=== PATIENT | female | born 1995 | race Caucasian/White ===

== ENCOUNTER 2016-06-06 07:33 | Inpatient (IN) | payer OTHER ==
[~2016-06-06] VITALS: Ht 167.6 cm; Wt 60.8 kg
[2016-06-06 08:39] LABS: HEMATOCRIT 37.1 % (37-47); MEAN CELL VOLUME 81.9 fL (80-100); MEAN CORPUSCULAR HGB CONC 34.2 g/dl (32-36); MEAN PLATELET VOLUME 10.4 fL (7.4-10.4); PLATELET COUNT 200 K/uL (130-400); RED BLOOD COUNT 4.53 M/uL (4.2-5.4); WHITE BLOOD COUNT 6.26 K/uL (4.8-10.8)
[2016-06-06] MEDS ORDERED: BCPILLS PO (08:50)
[2016-06-06] MEDS ORDERED: CYAN100073 (08:50)
[2016-06-06 08:58] LABS: CREATININE 0.74 mg/dl (0.60-1.20); POTASSIUM 3.7 mmol/L (3.5-5.1)
[2016-06-06 09:08] LABS: ALB/GLOB RATIO 1.2 (0.9-2); THYROID STIMULATING HORMONE 2.68 uIu/ml (0.300-4.500)
--- NOTE | 2016-06-06 10:13 | EMERGENCY ROOM VISIT NOTE ---
History Report prepared by Kelly: Don Tamayo Under the Supervision of: Dr. Amol Hampton M.D. First contact with patient: 07:48 Chief Complaint: MENTAL HEALTH EVALUATION Stated Complaint: DEPRESSION,ANXIETY,CUTTING History of Present Illness The patient is a 20 year old female who presents to the Emergency Room for an acute mental health evaluation. The patient has a history of anxiety and depression. She has been cutting her arms to relieve stress this week. The patient has a history of cutting herself. The patient states that a lot of different things are contributing to her anxiety an depression, mostly school. 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 The patient is not on any psych medications, and never has been. She admits to having suicidal ideations last week. The patient states that she would probably take pills, but does not think that she would actually do it. The patient's parents are aware of her history of cutting. The patient saw a counselor last week, and a few times over the summer. She did not discuss a treatment plan with the counselor. The patient says that she does not want to be admitted as an inpatient. The patient has been eating okay. She does not sleep much at night because of racing thoughts. The patient denies any history of eating disorders. She only drinks 2-3 times per month, but tends to drink heavily. She denies other drug use. She denies any medical problems. Source of History: patient Onset: one week ago Position: other (psyche) Quality: other (mental health evaluation) Timing: other (acute ) Note: Patient had suicidal ideations last week. Positive for cutting. Review of Systems All systems have been listed, reviewed, and are negative other than those previously mentioned. Please see Additional Medical History Sheet. Past Medical & Surgical Medical Problems: (1) Anxiety and depression (2) Suicidal ideation Family History No pertinent family history Social History Smoking Status: Never Smoker Alcohol Use: occasionally Marital Status: in relationship Occupation Status: [employer] student Current/Historical Medications Scheduled Control Pills ( Control Pills), 1 TAB PO DAILY Miscellaneous Medications Cyanocobalamin (B12) Allergies Coded Allergies: No Known Allergies (Unverified , 06/06/16) Physical Exam Vital Signs Date Time Temp Pulse Resp B/P Pulse Ox O2 Delivery O2 Flow Rate FiO2 06/06/16 10:03 95 18 122/53 97 Room Air 1/12/17 07:41 37.1 99 18 117/66 97 Room Air Physical Exam GENERAL: Patient awake, alert, oriented x 3. Anxious appearing. Patient follows commands. Patient does not appear toxic. Patient is adequately hydrated and well-nourished. SKIN: No erythema, pallor, cyanosis or rash. Multiple healing lacerations on her left forearm from cutting, none of which appear infected or require repair. HEENT: Normal head, pupils equal, reactive to light and accommodation. Oral cavity and posterior pharynx appear normal. Neck: Without adenopathy, no neck vein distention. Thyroid not enlarged, no nodules palpated. LUNGS: Clear to auscultation. No wheezes, no rales, no rhonchi. HEART: No murmurs. No gallops. No rubs EXTREMITIES: Multiple healing lacerations on her left forearm from cutting, none of which appear infected or require repair. NEUROLOGIC: Cranial nerves II-XII within normal limits. No gross motor sensory function deficits. PSYCH: Awake, alert, oriented, appropriate, somewhat anxious appearing, currently not suicidal. Medical Decision & Procedures Laboratory Results 06/06/16 08:22 06/06/16 08:22 Test 06/06/16 08:22 06/06/16 11:00 06/06/16 11:31 Red Blood Count 4.53 M/uL (4.2-5.4) Mean Corpuscular Volume 81.9 fL (80-100) Mean Corpuscular Hemoglobin 28.0 pg (25-34) Mean Corpuscular Hemoglobin Concent 34.2 g/dl (32-36) RDW Standard Deviation 39.3 fL (36.4-46.3) RDW Coefficient of Variation 13.0 % (11.5-14.5) Mean Platelet Volume 10.4 fL (7.4-10.4) Anion Gap 12.0 mmol/L (3-11) Est Creatinine Clear Calc Drug Dose 114.4 ml/min Estimated GFR () 136.1 Estimated GFR (Non- 117.4 BUN/Creatinine Ratio 15.0 (10-20) Calcium Level 9.0 mg/dl (8.5-10.1) Total Bilirubin 0.3 mg/dl (0.2-1) Aspartate Amino Transf (AST/SGOT) 67 U/L (15-37) Alanine Aminotransferase (ALT/SGPT) 23 U/L (12-78) Alkaline Phosphatase 58 U/L (45-117) Total Protein 7.1 gm/dl (6.4-8.2) Albumin 3.8 gm/dl (3.4-5.0) Globulin 3.3 gm/dl (2.5-4.0) Albumin/Globulin Ratio 1.2 (0.9-2) Thyroid Stimulating Hormone (TSH) 2.680 uIu/ml (0.300-4.500) Urine Color DK YELLOW Urine Appearance CLOUDY (CLEAR) Urine pH 5.5 (4.5-7.5) Urine Specific [place] 1.025 (1.000-1.030) Urine Protein NEG (NEG) Urine Glucose (UA) NEG (NEG) Urine Ketones TRACE (NEG) Urine Occult Blood NEG (NEG) Urine Nitrite NEG (NEG) Urine Bilirubin NEG (NEG) Urine Urobilinogen NEG (NEG) Urine Leukocyte Esterase NEG (NEG) Urine WBC (Auto) 1-5 /hpf (0-5) Urine RBC (Auto) 0-4 /hpf (0-4) Urine Hyaline Casts (Auto) 1-5 /lpf (0-5) Urine Epithelial Cells (Auto) 10-20 /lpf (0-5) Urine Bacteria (Auto) NEG (NEG) Urine Test NEG (NEG) Urine Opiates Screen NEG (NEG) Urine Methadone, Qualitative NEG (NEG) Urine Barbiturates NEG (NEG) Urine Phencyclidine (PCP) Level NEG (NEG) Ur Amphetamine/Methamphetamine NEG (NEG) MDMA (Ecstasy) Screen NEG (NEG) Urine Benzodiazepines Screen NEG (NEG) Urine Cocaine Metabolite NEG (NEG) Urine Marijuana (THC) NEG (NEG) Ethyl Alcohol mg/dL 50.0 mg/dl (0-3) Laboratory results as stated above per my review. ED Course 0750: Past medical records reviewed. The patient was evaluated in room A8. A complete history and physical examination was performed. 0950: The patient will be evaluated by Psych. 1138: There is a bed available for the patient in [facility]. 1230: The patient spoke with a mental health publications sales representative from [facility], and said that she feels unsafe at home. This is a change from our previous discussion. She will be admitted for a psych evaluation for depression / anxiety. Medical Decision I considered multiple diagnoses including anxiety, depression, thyroid disease, drug intoxication, suicidal ideation. Multiple labs and urinalysis were evaluated. Please see above. Initially the patient felt safe and felt that she could follow-up with outpatient counseling. While she was here the patient became more apprehensive about going home and was felt to be more suicidal. The patient was reevaluated by mental health and felt to be a good candidate for admission for her depression and suicidal ideation. I discussed findings with the patient, friends and with the mental health worker. Impression Primary Impression: Depression Additional Impressions: Anxiety Suicidal ideations Deliberate self-cutting Scribe Attestation The scribe's documentation has been prepared under my direction and personally reviewed by me in its entirety. I confirm that the note above accurately reflects all work, treatment, procedures, and medical decision making performed by me. Departure Information Dispostion Mental Health Acute Care Referrals No Doctor, Assigned (PCP) Patient Instructions A Signature Page, My [facility] Problem Qualifiers
[2016-06-06 11:46] LABS: URINE APPEARANCE CLOUDY (CLEAR); URINE BILIRUBIN NEG (NEG); URINE COLOR DK YELLOW; URINE NITRITE NEG (NEG); URINE PH 5.5 (4.5-7.5); URINE SPECIFIC GRAVITY 1.025 (1.000-1.030); UROBILINOGEN NEG (NEG)
[2016-06-06 11:49] LABS: MANUAL MICROSCOPIC REQUIRED? NO; REVIEW REQ? NO
[2016-06-06 11:58] LABS: BENZODIAZEPINE, URINE NEG (NEG); COCAINE,URINE NEG (NEG); PHENCYCLIDINE, URINE NEG (NEG)
[2016-06-06 12:29] VITALS: O2SAT 98
[2016-06-06] MEDS ORDERED: MAGNESIUM HYDROXIDE SUSP 30 ML UDC PO PRN (12:30)
[2016-06-06] MEDS ORDERED: BISMUTH SUBSALICYLATE PER ML OMNICELL CHARGE PO PRN (12:30)
[2016-06-06] MEDS ORDERED: SODIUM CHLORIDE 0.65% NA SOLN 45 ML (OCEAN) PRN (12:30)
[2016-06-06] MEDS ORDERED: hydrOXYzine HCL 25 MG TAB PO PRN ×2 (12:30)
[2016-06-06] MEDS ORDERED: ALUMINUM/MAGNESIUM SUSP 30 ML UDC PO PRN (12:30)
[2016-06-06] MEDS ORDERED: ACETAMINOPHEN 325 MG TAB PO PRN (12:30)
[2016-06-06 13:20] VITALS: BP 110/55; PULSE 81; TEMP 36.9
[2016-06-06] MEDS ORDERED: SERTRALINE HCL 50 MG TAB PO ONE (14:16)
[2016-06-06 14:26] VITALS: BP 110/55; PULSE 81; TEMP 36.9; Ht 167.6 cm; Wt 60.8 kg
[2016-06-06] MEDS ORDERED: BCP'S~ORDER AWAITING ACTION PO SCH (14:30)
[2016-06-06] MEDS ORDERED: CYAN100073 PO (14:48)
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
[2016-06-06] MEDS ORDERED: ETON1IMP2 (14:58)
[2016-06-07 06:49] VITALS: BP_SYST 121; BP_SYST 132; BP_DIAS 57; BP_DIAS 92; PULSE 66; TEMP 36.6
[2016-06-07] MEDS: CYANOCOBALAMIN 500 MCG TAB (VIT B-12) PO SCH (09:10)
[2016-06-07] MEDS: SERTRALINE HCL 50 MG TAB PO SCH (09:10)
--- NOTE | 2016-06-07 11:32 | Psychiatric Progress Notes ---
Progress Note Date of Service Jun 07, 2016. Interval History 20 yo [employer] student admitted voluntarily on 06/06/16 with severe depression, anxiety and suicidality. She has had long standing untreated depression and anxiety and has never been on meds or in sustained therapy. Chief Complaint "OK.". Subjective Patient was seen & assessed interval progress reviewed with Treatment Team. The patient says that she is adjusting to the unit, but slept most of the day yesterday. She still does not want to tell her father that she is here saying that she is not comfortable talking to him about her depression, and many times feels worse when he is around. When he brought her back to school last week, he hung around over night because he was worried about her mood but she wanted him to leave. She would prefer to involve her boyfriend in her treatment instead. Today she says that her mood is a little better and has not yet had thoughts of suicide, but is already thinking about when she can leave the hospital. She doesn't want to miss classes next week, with her first class being on Friday at 1000. She reports good appetite and sleep. Review of Systems Constitutional: No chills, No fatigue, No fever, No problem reported, No sweats , No weakness, No weight loss ENT: No dental problems, No hearing loss, No nasal symptoms, No problem reported, No sore throat, No tinnitus, No trouble swallowing, No unusual epistaxis Respiratory: No cough, No dyspnea at rest, No dyspnea on exertion, No hemoptysis, No problem reported, No shortness of breath, No sputum, No wheezing Cardiovascular: No PND, No chest pain, No claudication, No edema, No orthopnea , No palpitations, No problem reported Abdomen: No GI bleeding, No constipation, No diarrhea, No nausea, No pain, No problem reported, No vomiting Musculoskeletal: No calf pain, No joint pain, No muscle pain, No problem reported, No swelling Neurologic: No balance problems, No memory loss, No numbness/tingling, No paralysis, No problem reported, No vertigo, No weakness Psychiatric: + anxiety, + depression symptoms Integumentary: No bleeding, No color change, No itch, No new/changing skin lesions, No problem reported, No rash Sleep Information Total Hours of Sleep: 5.50 Meal Information Percent of Breakfast Consumed: 100 Percent of Dinner Consumed: 100 Mental Status Exam During interview pt is: alert and oriented, cooperative Appearance: appropriately dressed, appropriately groomed Eye contact is: good Motor behavior is: steady gait & station, no abnormal motor movements Speech: other (quiet, minimal) Mood is: depressed Thought process: goal directed Thought content: reality based without delusions Suicidal thought are: denied Homicidal thoughts are: denied Hallucinations: denies auditory, denies visual Cognition: memory grossly intact, attention grossly intact Intelligence estimated to be: average Insight: impaired Judgement: impaired Impression Adjusting to the milieu, but already minimizing her condition, wanting to be discharged. She has not been one to share her depression and anxiety with others over the years, resulting in years of suffering with treatment. She continues this pattern with her father, not wanting to involve him in treatment , not feeling comfortable talking to him. I think this extends beyond her father and will encourage her to develop an emotional vocabulary that she can become comfortable with. Is tolerating the start of Zoloft which increased to 50 mg. today. Continued Inpatient Care The patient requires inpatient treatment due to the severity of her condition and the risk for self harm if discharged. Plan (1) Major depressive disorder, recurrent severe without psychotic features 06/07 -Continue Zoloft 50 mg. daily - Q 15 min checks for safety - Encourage participation in group and individual counseling - Family meeting - Assist the patient to learn and utilize healthy coping strategies - Assist the patient to develop an emotional vocabulary that she could learn to be comfortable with. - The patient will need psychiatric follow up. (2) HILLARY (generalized anxiety disorder) 06/07 - Meds as above - Prn vistaril for anxiety or insomnia - Expose the patient to educational activities re: relaxation, mindfulness, deep breathing. Discharge / Aftercare Planning Primary Care Phys[facility]: [facility]: [facility] Visit Code E&M Code: 52709 Risk Factors Assessment : Yes /single/: Yes Higher / Fall in social status: No Access to guns: No Health problems: No Mental Health Diagnoses: No Substance use disorders: No Previous attempt: No Previous psychiatric stay: No Smoker: No Protective Factors Assessment Latter-Day beliefs: No : No Responsible for young children: No Employed: Yes Stable relationships: Yes Supportive family: Yes Data Vital Signs Last 24 Hrs: Date Time Temp Pulse Resp B/P Pulse Ox O2 Delivery O2 Flow Rate FiO2 06/07/16 06:49 36.6 66 16 121/57 66 132/92 06/06/16 14:26 36.9 81 18 110/55 06/06/16 13:20 36.9 81 18 110/55 06/06/16 12:29 93 18 104/81 98 Room Air Meds Administered Last 24 Hrs: Meds Administered (Past 24Hrs) Medications (Trade) Dose Ordered Sig/Curtis Route Start Time Stop Time Status Last Admin Dose Admin Sertraline HCl (Zoloft Tab) 50 mg QAM PO 06/07/16 09:00 07/07/16 08:59 06/07/16 09:10 50 MG Sertraline HCl (Zoloft Tab) 25 mg 1416 ONCE PO 06/06/16 14:16 06/06/16 14:21 DC 06/06/16 14:50 25 MG Cyanocobalamin (Vitamin B-12 Tab) 1,000 mcg QAM PO 06/07/16 09:00 07/07/16 08:59 06/07/16 09:10 1,000 MCG Lab Results Last 24 Hrs: Last 24 Hours Test 06/06/16 11:31 Ethyl Alcohol mg/dL 50.0 mg/dl
[2016-06-08 06:50] VITALS: BP_SYST 105; BP_SYST 121; BP_DIAS 67; BP_DIAS 83; PULSE 69; PULSE 88; TEMP 36.8
[2016-06-08] MEDS: CYANOCOBALAMIN 500 MCG TAB (VIT B-12) PO SCH (08:54)
[2016-06-08] MEDS: SERTRALINE HCL 50 MG TAB PO SCH (08:54)
--- NOTE | 2016-06-08 12:58 | Psychiatric Progress Notes ---
Progress Note Date of Service Jun 08, 2016. Interval History 20 yo [employer] student admitted voluntarily on 06/06/16 with severe depression, anxiety and suicidality. She has had long standing untreated depression and anxiety and has never been on meds or in sustained therapy. Chief Complaint "Better". Subjective Patient was seen & assessed interval progress reviewed with nursing. Staff reported she is going to groups and participating. She is willing to have a meeting with her boyfriend, but also wants to leave this weekend so she doesn't miss class on Friday. She does not want to involve her father in her treatment. She did not sleep as much last night, she thinks due to staying up late to read , and admits she usually gets only 5 hours of sleep. She denies SI and is working on her safety plan. She is planning to return to [facility] for outpatient services. She denies side effects to medications. Sleep Information Total Hours of Sleep: 5.75 Meal Information Percent of Breakfast Consumed: 100 Percent of Lunch Consumed: 100 Percent of Dinner Consumed: 95 Mental Status Exam During interview pt is: alert and oriented, cooperative Appearance: appropriately dressed, appropriately groomed (wearing makeup) Eye contact is: good Motor behavior is: steady gait & station, no abnormal motor movements Speech: other (quiet, minimal) Affect: blunted Mood is: other ("better," but still appears depressed) Thought process: goal directed Thought content: reality based without delusions Suicidal thought are: denied Homicidal thoughts are: denied Hallucinations: denies auditory, denies visual Cognition: memory grossly intact, attention grossly intact Intelligence estimated to be: average Insight: impaired Judgement: impaired Impression Adjusting to the milieu, but minimizing her symptoms, wanting to be discharged. She has not been one to share her depression and anxiety with others over the years, resulting in years of suffering without treatment. She continues this pattern with her father, not wanting to involve him in treatment, not feeling comfortable talking to him. I think this extends beyond her father and will encourage her to develop an emotional vocabulary that she can become comfortable with. Is tolerating the start of Zoloft which has been increased to 50 mg. Continued Inpatient Care The patient requires inpatient treatment due to the severity of her condition and the risk for self harm if discharged. Plan (1) Major depressive disorder, recurrent severe without psychotic features 06/07 -Continue Zoloft 50 mg. daily - Q 15 min checks for safety - Encourage participation in group and individual counseling - Family meeting - Assist the patient to learn and utilize healthy coping strategies - Assist the patient to develop an emotional vocabulary that she could learn to be comfortable with. - The patient will need psychiatric follow up. 06/08 - Patient focused on discharge and denying SI. Have asked weekend staff to have a family meeting with her boyfriend to review her safety plan, coping skills, and discharge plan. She plans to continue services at [facility]. (2) HILLARY (generalized anxiety disorder) 06/07 - Meds as above - Prn vistaril for anxiety or insomnia - Expose the patient to educational activities re: relaxation, mindfulness, deep breathing. Discharge / Aftercare Planning Primary Care Physician: Name: [facility] Psychiatrist: Name: Dr. Kristin Quinn ([facility]) Visit Code E&M Code: 39917 Risk Factors Assessment : Yes /single/: Yes Higher / Fall in social status: No Access to guns: No Health problems: No Mental Health Diagnoses: No Substance use disorders: No Previous attempt: No Previous psychiatric stay: No Hopelessness: No Smoker: No Protective Factors Assessment Yarsani beliefs: No : No Responsible for young children: No Employed: Yes Stable relationships: Yes Supportive family: Yes Data Vital Signs Last 24 Hrs: Date Time Temp Pulse Resp B/P Pulse Ox O2 Delivery O2 Flow Rate FiO2 06/08/16 06:50 36.8 69 16 105/67 88 121/83 Meds Administered Last 24 Hrs: Meds Administered (Past 24Hrs) Medications (Trade) Dose Ordered Sig/Curtis Route Start Time Stop Time Status Last Admin Dose Admin Sertraline HCl (Zoloft Tab) 50 mg QAM PO 06/07/16 09:00 07/07/16 08:59 06/08/16 08:54 50 MG Sertraline HCl (Zoloft Tab) 25 mg 1416 ONCE PO 06/06/16 14:16 06/06/16 14:21 DC 06/06/16 14:50 25 MG Cyanocobalamin (Vitamin B-12 Tab) 1,000 mcg QAM PO 06/07/16 09:00 07/07/16 08:59 06/08/16 08:54 1,000 MCG Lab Results Last 24 Hrs: Last 24 Hours Test 06/08/16 07:03 Aspartate Amino Transf (AST/SGOT) 48 U/L
[2016-06-09 07:03] VITALS: BP_SYST 104; BP_SYST 134; BP_DIAS 56; BP_DIAS 62; PULSE 62; PULSE 86; TEMP 36.3
--- NOTE | 2016-06-09 08:21 | Discharge Instructions ---
Discharge Information Report Includes Report will include the: Discharge Instructions & Summary Admission Admission Date / Time: Jun 06, 2016 at 12:24 Reason for Admission: Suicidal Ideation Discharge Discharge Diagnosis / Problem: Depression and anxiety Condition at Discharge: Good Discharge Goals Goal(s): Improve function, Improve disease control, Learn about illness, Therapeutic intervention Activity Recommendations Activity Limitations: resume your previous activity . Instructions / Follow-Up Instructions / Follow-Up . SPECIAL CARE INSTRUCTIONS: 1. Follow through with your scheduled aftercare appointments. If unable to keep an appointment, please call to reschedule. 2. Take your medication only as prescribed. Medication should not be changed or stopped without the approval of your doctor. In the event of worsening symptoms or concerns about side effects, contact your doctor immediately. 3. Utilize new healthy coping skills, anger management skills, and stress management skills learned during your hospitalization. Journal feelings and process them with a support person. Identify stressors or situations that may result in relapse, deterioration or inappropriate behaviors and develop a plan to deal with those issues. 4. If your coping skills are ineffective and you are in crisis, contact your outpatient providers for direction. If unable to reach your providers, please call the CAN HELP LINE AT or go to the closest Emergency Room. 5. Avoid alcohol and un-prescribed drugs. 6. You have been provided with the Mental Health Advance Directives Pamphlet for your review. AFTERCARE APPOINTMENTS: * Please call your insurance company prior to your scheduled appointment to confirm your aftercare providers are covered. Take your insurance information to your appointments. . Discharge / Aftercare Planning Primary Care Physician: Name: [facility] Psychiatrist: Name: Dr. Kristin Quinn ([facility]) Therapist: Name Of Therapist: DEE . Follow-Up Care Plan for Follow-Up Care: Follow up with current providers at [facility], and recommend establishing care with a psychiatrist and a therapist in the community. As you have requested discharge on a weekend, these referrals could not be made for you by the hospital. We will provide you with a list of local psychiatrists and therapists. Current Hospital Diet Patient's current hospital diet: Regular Diet Discharge Diet Recommended Diet: Regular Diet Procedures Procedures Performed: No Pending Studies Pending Studies at Discharge: No Medical Emergencies . Who to Call and When: Medical Emergencies: For questions or emergencies related to your hospital stay, please contact the Inpatient Behavioral Health Unit at [phone]. A speech and language clinician is on-call 16/12 for the Behavioral Health Unit for emergencies At any time you feel your situation is an emergency, you may also call 911 immediately. . Non-Emergent Contact Non-Emergency issues call your: Primary Care Provider, Psychiatrist, Therapist Past History Medical & Surgical History: (1) Deliberate self-cutting Advance Directives Existing Advance Directive: No Do You Have an Existing Mental: No Existing Living Will: No Existing Power of Cable Worker Helper: No Advance Directives Info Given: To Pt/S.O. Discharge Summary Admission HPI Per the Admitting provider: Please see admission H&P. Admission Exam Per the Admitting provider: Please see admission H&P. Hospital Course (1) Major depressive disorder, recurrent severe without psychotic features 06/07 -Continue Zoloft 50 mg. daily - Q 15 min checks for safety - Encourage participation in group and individual counseling - Family meeting - Assist the patient to learn and utilize healthy coping strategies - Assist the patient to develop an emotional vocabulary that she could learn to be comfortable with. - The patient will need psychiatric follow up. 06/08 - Patient focused on discharge and denying SI. Weekend staff had a family meeting with her boyfriend to review her safety plan, coping skills, and discharge plan. She plans to continue services at [facility] while arranging aftercare in the community. 06/09 - Patient continues to request discharge, is denying SI, and does not wish to stay until tomorrow so that aftercare can be arranged. She states she plans to follow up with her providers at [facility] while arranging aftercare in the community. Boyfriend met with staff last night and stated patient seemed much improved, and he had no concerns with her being discharged. (2) HILLARY (generalized anxiety disorder) 06/07 - Meds as above - Prn vistaril for anxiety or insomnia - Expose the patient to educational activities re: relaxation, mindfulness, deep breathing. Risk Factors Assessment : Yes /single/: Yes Higher / Fall in social status: No Access to guns: No Health problems: No Mental Health Diagnoses: No Substance use disorders: No Previous attempt: No Previous psychiatric stay: No Hopelessness: No Smoker: No Protective Factors Assessment Adventism beliefs: No : No Responsible for young children: No Employed: Yes Stable relationships: Yes Supportive family: Yes Absence of risk factors above: Yes (Patient has consistently denied SI here, reports improved mood, has partcipated in therapy and groups, had a meeting with her boyfriend who will stay with her after discharge and denied safety concerns with discharge, and expressed willingness to follow up with outpatient providers.) Day of Discharge Assessment Hospital Course: On admission, the patient was started on sertraline 25 mg daily, which she tolerated well and her dose was increased to 50 mg daily. She attended all groups and participated in therapy, and was able to discuss her stressors. She was unwilling to contact her father, stating that she was not comfortable talking to him about her depression, and often feels worse when he is around. She preferred to involve her boyfriend and her treatment instead, and he had a meeting with unit staff and the patient on 06/08/2016. He stated that her mood seemed to be improved, and denied concerns with her being discharged. He stated a plan to stay with her for several days after discharge. The patient requested discharge over the weekend, stating she did not want to miss any classes the following week, as her first class was Friday morning, and it would add to her stress if she missed it. She had good sleep and appetite throughout her stay, and her mood improved. She consistently denied suicidality out her hospitalization. She was able to work on a safety plan and to identify coping skills that are helpful for her. She was social with peers, and had support from her boyfriend. She also contacted her employer to let them know she would be missing some work. Day of Discharge Assessment: Staff report the patient is going to groups, consistently denying SI, and staff met with her and her boyfriend to review her safety plan and discharge plans. He is going to stay with her for a few days after discharge, and did not have concerns for her safety currently. The patient states that her mood is significantly improved from admission, rates it a 9 out of 10, and says she feels "happy" and ready for discharge. She denies any thoughts of harming herself or anyone else, and is making plans for the future. She feels she has good support from her boyfriend, who met with the patient and unit staff last night, is going to stay with her after discharge. She denies side effects to the medication, and is requesting discharge today so that she can resume classes tomorrow. She states she plans to continue to see her therapist at [facility] while arranging aftercare in the community. She states she tried to email a local psychiatrist to set up an appointment, but was informed he was not accepting new patients. She is asking for a list of local psychiatrists and therapists, and is aware that referrals were not made by the hospital staff, as she has requested to leave over the weekend and offices are not open. She is able to review her safety plan, and does not wish to stay another day so that aftercare can be arranged. Well nourished, well developed WF appearing stated age. Casually dressed and adequately groomed. Calm and cooperative. Seated in NAD, with fair eye contact and no abnormal movements. Speech is normal rate, volume, and tone. Mood is "happy," and affect is stable and congruent. Thoughts are linear, logical and goal directed. The patient denied suicidal and homicidal ideation and was able to safety plan. No paranoia, delusions, or hallucinations, and did not appear to be responding to internal stimuli. Cognition was grossly intact. Alert and oriented to person, place and time. Intelligence is consistent with level of education. Insight and and judgment are fair. Laboratory Refer to printed laboratory reports Total Time Total Time Spent (min): Greater than 30 minutes Total Time Included: examination of the patient, discharge planning, medication reconciliation Tobacco Cessation at Discharge FDA approved Prescription: non-smoker
[2016-06-09] MEDS: CYANOCOBALAMIN 500 MCG TAB (VIT B-12) PO SCH (08:50)
[2016-06-09] MEDS: SERTRALINE HCL 50 MG TAB PO SCH (08:50)
[2016-06-09] MEDS ORDERED: ZLF50 PO (09:45)
== END 2016-06-09 12:25 | disposition home or self-care (01) | DRG 885 ==
LOC: C.EDB 07:35 → C.MHU 12:24
PROVIDERS: ADMIT Psychiatry & Neurology Psychiatry; ATTEND Psychiatry & Neurology Child & Adolescent Psychiatry
DX: F33.2 Major depressive disorder, recurrent severe without psychotic features (principal); R45.851 Suicidal ideations; F41.1 Generalized anxiety disorder; G25.81 Restless legs syndrome; R74.0 Nonspecific elevation of levels of transaminase and lactic acid dehydrogenase [LDH]; Z91.5 Personal history of self-harm; Z79.899 Other long term (current) drug therapy; Z79.3 Long term (current) use of hormonal contraceptives

== ENCOUNTER 2017-02-08 10:19 | Inpatient (IN) | payer OTHER ==
[2017-02-08] VITALS (8 sets, daily range): BP systolic 87–111; BP diastolic 45–54; PULSE 76–90; TEMP 36.1–36.9; O2SAT 95–97; Ht 167.6 cm; Wt 59.6 kg
[~2017-02-08] VITALS: Ht 167.6 cm; Wt 59.6 kg
[~2017-02-08 10:19] MED LIST: CYAN100073 PO; ETON1IMP2; ZLF50 PO
[2017-02-08] MEDS ORDERED: ONDANSETRON INJ 2 MG/ML 2 ML VIAL IV STA (10:47)
[2017-02-08] MEDS ORDERED: SODIUM CHLORIDE 0.9% 1000ML 1,000 ML IV STA ×2 (10:47→12:08)
[2017-02-08 11:08] LABS: URINE APPEARANCE CLEAR (CLEAR); URINE BILIRUBIN NEG (NEG); URINE COLOR DK YELLOW; URINE EPITHELIAL CELL AUTO >30 /lpf (0-5); URINE NITRITE NEG (NEG); URINE PH 6.5 (4.5-7.5); URINE SPECIFIC GRAVITY 1.027 (1.000-1.030); UROBILINOGEN NEG (NEG)
[2017-02-08 11:17] LABS: MANUAL MICROSCOPIC REQUIRED? NO; REVIEW REQ? NO
--- NOTE | 2017-02-08 11:21 | EMERGENCY ROOM VISIT NOTE ---
History Report prepared by Kelly: Chneg Avina Under the Supervision of: Dr. Artur Billings D.O. First contact with patient: 10:33 Chief Complaint: MENTAL HEALTH EVALUATION Stated Complaint: STOMACHACHE, TRIED TO OD ON ZOLOFT/SLEEPING PILLS History of Present Illness The patient is a 21 year old female who presents to the Emergency Room for evaluation of an intentional overdose occurring 8 hours ago. She states that she attempted to overdose on Zoloft and Trazodone. She estimates that she took 10 pills of Trazodone and around 20 pills of Zoloft. The patient currently complains of nausea and fatigue. She states that she felt depressed because she got into a fight with her boyfriend last night. She notes that she drank a lot of alcohol last night. The patient states that her feelings of suicidal ideation have resolved, and she currently does not want to hurt herself. Her LNMP began yesterday. Source of History: patient Onset: 8 hours ago Quality: other (intentional overdose) Timing: other (episode) Associated Symptoms: + nausea, + fatigue Review of Systems See HPI for pertinent positives & negatives. A total of 10 systems reviewed and were otherwise negative. Past Medical & Surgical Medical Problems: (1) Anxiety and depression (2) HILLARY (generalized anxiety disorder) (3) Suicidal ideation Family History No pertinent family history Social History Smoking Status: Never Smoker Alcohol Use: occasionally Marital Status: in relationship Occupation Status: [employer] student Current/Historical Medications Scheduled Sertraline HCl (Sertraline HCl), 50 MG PO QAM Trazodone HCl (Trazodone HCl), 1 TAB PO HS Miscellaneous Medications Etonogestrel (Nexplanon) Allergies Coded Allergies: No Known Allergies (Unverified , 02/08/17) Physical Exam Vital Signs Date Time Temp Pulse Resp B/P (MAP) Pulse Ox O2 Delivery O2 Flow Rate FiO2 02/08/17 12:31 95 15 106/43 95 Room Air 02/08/17 11:17 76 17 94/48 95 Room Air 02/08/17 10:28 36.7 102 20 104/65 97 Room Air Physical Exam GENERAL: Patient is awake, alert, and somewhat anxious appearing, but does not appear to be uncomfortable or in pain. EYES: The conjunctivae are clear. The pupils are round and reactive. EARS, NOSE, MOUTH AND THROAT: The nose is without any evidence of any deformity. Mucous membranes are dry. Tongue is midline NECK: The neck is nontender and supple. RESPIRATORY: Normal respiratory effort is noted there is no evidence of wheezing rhonchi or rales CARDIOVASCULAR: Regular rate and rhythm noted there no murmurs rubs or gallops normal S1 normal S2 GASTROINTESTINAL: The abdomen is soft. Bowel sounds are present in all quadrants. Abdomen is nontender MUSCULOSKELETAL/EXTREMITIES: There is no evidence of gross deformity full range of motion is noted in the hips and shoulders SKIN: There is no obvious evidence of any rash. There are no petechiae, pallor or cyanosis noted. NEUROLOGIC: Patient is awake alert and oriented x3 strength is symmetric patellar reflexes are 2+ bilaterally PSYCH: Affect flat. Makes poor eye contact at times. Currently denying suicidal or homicidal ideation. Admits to intentional overdose in an attempt to hurt herself after a fight with her boyfriend last night. Medical Decision & Procedures Laboratory Results 02/08/17 11:05 Red Blood Count 4.61, Mean Corpuscular Volume 83.3, Mean Corpuscular Hemoglobin 27.1, Mean Corpuscular Hemoglobin Concent 32.6, Mean Platelet Volume 10.0, Neutrophils (%) (Auto) 87.6, Lymphocytes (%) (Auto) 8.6, Monocytes (%) (Auto) 3.1, Eosinophils (%) (Auto) 0.2, Basophils (%) (Auto) 0.1, Neutrophils # (Auto) 9.96, Lymphocytes # (Auto) 0.98, Monocytes # (Auto) 0.35, Eosinophils # (Auto) 0.02, Basophils # (Auto) 0.01 02/08/17 11:05 Test 02/08/17 00:00 02/08/17 11:05 Urine Color DK YELLOW Urine Appearance CLEAR (CLEAR) Urine pH 6.5 (4.5-7.5) Urine Specific [place] 1.027 (1.000-1.030) Urine Protein TRACE (NEG) Urine Glucose (UA) NEG (NEG) Urine Ketones NEG (NEG) Urine Occult Blood NEG (NEG) Urine Nitrite NEG (NEG) Urine Bilirubin NEG (NEG) Urine Urobilinogen NEG (NEG) Urine Leukocyte Esterase NEG (NEG) Urine WBC (Auto) 1-5 /hpf (0-5) Urine RBC (Auto) 0-4 /hpf (0-4) Urine Hyaline Casts (Auto) 1-5 /lpf (0-5) Urine Epithelial Cells (Auto) >30 /lpf (0-5) Urine Bacteria (Auto) NEG (NEG) Urine Test NEG (NEG) Urine Opiates Screen NEG (NEG) Urine Methadone, Qualitative NEG (NEG) Urine Barbiturates NEG (NEG) Urine Phencyclidine (PCP) Level NEG (NEG) Ur Amphetamine/Methamphetamine NEG (NEG) MDMA (Ecstasy) Screen POS (NEG) Urine Benzodiazepines Screen POS (NEG) Urine Cocaine Metabolite NEG (NEG) Urine Marijuana (THC) NEG (NEG) White Blood Count 11.36 K/uL (4.8-10.8) Red Blood Count 4.61 M/uL (4.2-5.4) Hemoglobin 12.5 g/dL (12.0-16.0) Hematocrit 38.4 % (37-47) Mean Corpuscular Volume 83.3 fL (80-100) Mean Corpuscular Hemoglobin 27.1 pg (25-34) Mean Corpuscular Hemoglobin Concent 32.6 g/dl (32-36) Platelet Count 210 K/uL (130-400) Mean Platelet Volume 10.0 fL (7.4-10.4) Neutrophils (%) (Auto) 87.6 % Lymphocytes (%) (Auto) 8.6 % Monocytes (%) (Auto) 3.1 % Eosinophils (%) (Auto) 0.2 % Basophils (%) (Auto) 0.1 % Neutrophils # (Auto) 9.96 K/uL (1.4-6.5) Lymphocytes # (Auto) 0.98 K/uL (1.2-3.4) Monocytes # (Auto) 0.35 K/uL (0.11-0.59) Eosinophils # (Auto) 0.02 K/uL (0-0.5) Basophils # (Auto) 0.01 K/uL (0-0.2) RDW Standard Deviation 36.7 fL (36.4-46.3) RDW Coefficient of Variation 12.1 % (11.5-14.5) Immature Granulocyte % (Auto) 0.4 % Immature Granulocyte # (Auto) 0.04 K/uL (0.00-0.02) Prothrombin Time 10.9 SECONDS (9.0-12.0) Prothromb Time International Ratio 1.0 (0.9-1.1) Activated Partial Thromboplast Time 22.6 SECONDS (21.0-31.0) Partial Thromboplastin Ratio 0.9 Anion Gap 11.0 mmol/L (3-11) Est Creatinine Clear Calc Drug Dose 99.9 ml/min Estimated GFR () 116.0 Estimated GFR (Non- 100.1 BUN/Creatinine Ratio 18.7 (10-20) Osmolality 313 mOsm/kg (280-300) Calcium Level 9.0 mg/dl (8.5-10.1) Magnesium Level 2.1 mg/dl (1.8-2.4) Total Bilirubin 0.4 mg/dl (0.2-1) Direct Bilirubin < 0.1 mg/dl (0-0.2) Aspartate Amino Transf (AST/SGOT) 28 U/L (15-37) Alanine Aminotransferase (ALT/SGPT) 20 U/L (12-78) Alkaline Phosphatase 58 U/L (45-117) Total Creatine Kinase 182 U/L (26-192) Creatine Kinase MB 1.4 ng/ml (0.5-3.6) Creatine Kinase MB Ratio 0.8 (0-3.0) Troponin I < 0.015 ng/ml (0-0.045) Total Protein 7.7 gm/dl (6.4-8.2) Albumin 4.1 gm/dl (3.4-5.0) Lipase 3281 U/L (73-393) Salicylates Level < 1.7 mg/dl (2.8-20) Acetaminophen Level < 2 ug/ml (10-30) Ethyl Alcohol mg/dL 63.0 mg/dl (0-3) Laboratory results per my review. Medications Administered Medications (Trade) Dose Ordered Sig/Curtis Route Start Time Stop Time Status Last Admin Dose Admin Sodium Chloride 1,000 ml @ 999 mls/hr Q1H1M STAT IV 02/08/17 10:47 02/08/17 11:47 DC 02/08/17 11:14 999 MLS/HR Ondansetron HCl (Zofran Inj) 4 mg NOW STAT IV 02/08/17 10:47 02/08/17 10:49 DC 02/08/17 11:14 4 MG Pantoprazole Sodium 40 mg/ Syringe 10 ml @ 5 mls/min NOW ONCE IV 02/08/17 12:00 02/08/17 12:01 DC 02/08/17 12:28 5 MLS/MIN Sodium Chloride 1,000 ml @ 250 mls/hr Q4H STAT IV 02/08/17 12:08 02/08/17 16:07 02/08/17 12:29 250 MLS/HR ECG Indication: nausea Rate (beats per minute): 92 Rhythm: normal sinus Findings: no acute ischemic change, no ectopy, other (QTC of 536) Comparison ECG Date: no prior available ED Course 1044: The patient was evaluated in room A7. A complete history and physical examination were performed. 1047: Ordered Zofran Inj 4 mg IV, NSS 1,000 ml @ 999 mls/hr IV. 1200: Ordered Pantoprazole Sodium 40 mg/Syringe 10 mL @ 5 mL/min IV. 1208: Ordered NSS 1,000 ml @ 250 mls/hr IV. 1210: Upon reevaluation, the patient is resting comfortably. I discussed results and treatment plan with her. She verbalizes agreement and understanding. I spoke with Dr. Mccollum of the [facility] [place]. The patient will be evaluated for further management and care. Medical Decision Differential diagnosis: Etiologies such as mood disorder, infection, hypoglycemia, electrolyte abnormalities, cardiac sources, intracerebral event, toxicologic, neurologic, as well as others were entertained. Nursing notes reviewed. The patient is a 21-year-old female who presented to the emergency department for an evaluation after a suicidal gesture this morning. The patient states that between 2 and 3 this morning she took multiple doses of her Zoloft as well as her trazodone. She was also drinking significant amounts of alcohol. She states that she had significant suicidal ideation at that time after arguing with her boyfriend. The patient presents to the emergency department today and states that she feels somewhat improved and denies having any suicidal ideation at this time. She does have nausea but no abdominal tenderness. I discussed the patient's laboratory results with her. She was unable to be medically cleared in the emergency department at this time because of a significantly elevated lipase. I do feel this is likely related to her acute alcohol use. She was treated with IV fluids as well as proton pump inhibitor. She was also given Zofran in the emergency department. Poison Control Center was consult. The patient's QTc was prolonged somewhat. Her magnesium is normal at this time. I discussed his case with the on-call [facility] hospitalist. They've agreed to evaluate the patient in the emergency department for further management and disposition. Medication Reconcilliation Current Medication List: was personally reviewed by me Blood Pressure Screening Patient's blood pressure: Normal blood pressure Blood pressure disposition: Did not require urgent referral Consults Time Called: 1205 Consulting Physician: Dr. Mccollum -[facility] Returned Call: 1210 I discussed the patient's case with Dr. Mccollum. The patient will be evaluated for further management. Impression Primary Impression: Depression Additional Impressions: Suicidal ideation Pancreatitis Suicide attempt Scribe Attestation The scribe's documentation has been prepared under my direction and personally reviewed by me in its entirety. I confirm that the note above accurately reflects all work, treatment, procedures, and medical decision making performed by me. Departure Information Dispostion Being Evaluated By Hospitalist Referrals No Doctor, Assigned (PCP) Patient Instructions My [facility] Health Problem Qualifiers Primary Impression: Depression Depression Type: unspecified Qualified Codes: F32.9 - Major depressive disorder, single episode, unspecified Additional Impressions: Pancreatitis Chronicity: acute Pancreatitis type: alcohol induced Acute pancreatitis complication: unspecified Qualified Codes: K85.20 - Alcohol induced acute pancreatitis without necrosis or infection
[2017-02-08 11:24] LABS: BASO % 0.1 %; BASO ABS # 0.01 K/uL (0-0.2); COMPLETE YES; EOS % 0.2 %; HEMATOCRIT 38.4 % (37-47); IG% 0.4 %; LYMPH % 8.6 %; LYMPH ABS # 0.98 K/uL (1.2-3.4); MEAN CELL VOLUME 83.3 fL (80-100); MEAN CORPUSCULAR HEMOGLOBIN 27.1 pg (25-34); MEAN CORPUSCULAR HGB CONC 32.6 g/dl (32-36); MONO % 3.1 %; NEUT % 87.6 %; PLATELET COUNT 210 K/uL (130-400); RED BLOOD COUNT 4.61 M/uL (4.2-5.4); WHITE BLOOD COUNT 11.36 K/uL (4.8-10.8)
[2017-02-08] MEDS ORDERED: TRAZ50TA35 PO (11:29)
[2017-02-08 11:33] LABS: PARTIAL THROMBOPLASTIN RATIO 0.9; PROTHROMBIN TIME (PATIENT) 10.9 SECONDS (9.0-12.0)
[2017-02-08 11:39] LABS: BENZODIAZEPINE, URINE POS (NEG); COCAINE,URINE NEG (NEG); PHENCYCLIDINE, URINE NEG (NEG)
[2017-02-08 11:45] LABS: ALT/SGPT 20 U/L (12-78); BLOOD UREA NITROGEN 16 mg/dl (7-18); BUN/CREATININE RATIO 18.7 (10-20); CARBON DIOXIDE 24 mmol/L (21-32); CHLORIDE 108 mmol/L (98-107); CREATININE 0.84 mg/dl (0.60-1.20); GLUCOSE 95 mg/dl (70-99); POTASSIUM 3.8 mmol/L (3.5-5.1); SODIUM 143 mmol/L (136-145)
[2017-02-08 11:51] LABS: ALKALINE PHOSPHATASE 58 U/L (45-117); AST/SGOT 28 U/L (15-37); CKMB/CK RATIO 0.8 (0-3.0)
[2017-02-08 11:53] LABS: ACETAMINOPHEN < 2 ug/ml (10-30)
[2017-02-08] MEDS ORDERED: PANTOprazole INJ 40 MG in SYRINGE 0 ML IV ONE (12:00)
[2017-02-08] MEDS ORDERED: DSY50 PO (12:22)
[2017-02-08] MEDS ORDERED: ONDANSETRON INJ 2 MG/ML 2 ML VIAL IV PRN (12:45)
[2017-02-08] MEDS ORDERED: ACETAMINOPHEN 325 MG TAB PO PRN (12:45)
--- NOTE | 2017-02-08 13:01 | History and Physical ---
History & Physical Date & Time of Service: Feb 08, 2017 at 12:46 Chief Complaint: Stomachache, Tried To Od On Zoloft/Sleeping Pills Primary Care Physician: [facility] History of Present Illness Source: patient Pt is a 21 yo female who presents to the ER for intentional overdose with her trazodone and zoloft medications after a fight with her boyfriend last night/ Pt states she had about 6 shots of alcohol in addition to 10-20 trazodone. Pt reports unknown amt of zoloft as well. Pt has hx of severe depression in which she follows up with [facility]. Pt currently states she is nauseous but denies any abd pain, fevers, chills, chest pain or shortness of breath. Pt reports continued nausea with emesis earlier this AM. Pt currently denies any suicidal ideation. Notable hx for severe depression and suicide attempt in the past. Past Medical/Surgical History Medical Problems: (1) Anxiety and depression Status: Chronic (2) HILLARY (generalized anxiety disorder) Status: Chronic Family History No pertinent family history Social History Smoking Status: Never Smoker Smokeless Tobacco Use: No Alcohol Use: socially Drug Use: marijuana Marital Status: in relationship Housing status: lives alone Occupational Status: [employer] student Allergies Coded Allergies: No Known Allergies (Unverified , 02/08/17) Home Medications Scheduled Sertraline HCl (Sertraline HCl), 50 MG PO QAM Trazodone HCl (Trazodone HCl), 1 TAB PO HS Miscellaneous Medications Etonogestrel (Nexplanon) Review of Systems Constitutional: No fever, No chills, No sweats, No weight loss, No weakness Respiratory: No cough, No sputum, No wheezing, No shortness of breath, No dyspnea on exertion Cardiovascular: No chest pain, No orthopnea, No PND, No edema, No claudication Abdomen: + nausea, + vomiting, No pain, No diarrhea, No constipation Musculoskeletal: No joint pain, No muscle pain, No swelling, No calf pain Genitourinary - Female: No dysuria, No urinary frequency, No urinary urgency Neurologic: No memory loss, No paralysis, No weakness, No numbness/tingling Psychiatric: No depression symptoms, No anhedonism, No anxiety, No insomnia Endocrine: No fatigue, No excessive thirst Integumentary: No rash, No itch Physical Exam Vital Signs Date Time Temp Pulse Resp B/P (MAP) Pulse Ox O2 Delivery O2 Flow Rate FiO2 02/08/17 12:31 95 15 106/43 95 Room Air 02/08/17 11:17 76 17 94/48 95 Room Air 02/08/17 10:28 36.7 102 20 104/65 97 Room Air General Appearance: WD/WN, + mild distress Head: normocephalic, atraumatic Eyes: normal inspection, PERRL, EOMI, sclerae normal ENT: normal ENT inspection, hearing grossly normal, TMs normal, pharynx normal Neck: supple, no adenopathy, thyroid normal, no JVD Respiratory/Chest: chest non-tender, lungs clear, normal breath sounds, no respiratory distress Cardiovascular: regular rate, rhythm, no edema, no gallop, no JVD Abdomen/GI: normal bowel sounds, non tender, soft, no organomegaly Back: normal inspection, no CVA tenderness, no muscle spasm Extremities/Musculoskelatal: normal inspection, no calf tenderness, normal capillary refill, no pedal edema Neurologic/Psych: no motor/sensory deficits, alert, normal mood/affect, oriented x 3 Skin: normal color, warm/dry, no rash Lymphatic: no adenopathy Diagnostics Laboratory Results Results Past 24 Hours Test 02/08/17 00:00 02/08/17 11:05 Range/Units Urine Color DK YELLOW Urine Appearance CLEAR CLEAR Urine pH 6.5 4.5-7.5 Urine Specific [place] 1.027 1.000-1.030 Urine Protein TRACE NEG Urine Glucose (UA) NEG NEG Urine Ketones NEG NEG Urine Occult Blood NEG NEG Urine Nitrite NEG NEG Urine Bilirubin NEG NEG Urine Urobilinogen NEG NEG Urine Leukocyte Esterase NEG NEG Urine WBC (Auto) 1-5 0-5 /hpf Urine RBC (Auto) 0-4 0-4 /hpf Urine Hyaline Casts (Auto) 1-5 0-5 /lpf Urine Epithelial Cells (Auto) >30 0-5 /lpf Urine Bacteria (Auto) NEG NEG Urine Test NEG NEG Urine Opiates Screen NEG NEG Urine Methadone, Qualitative NEG NEG Urine Barbiturates NEG NEG Urine Phencyclidine (PCP) Level NEG NEG Ur Amphetamine/Methamphetamine NEG NEG MDMA (Ecstasy) Screen POS NEG Urine Benzodiazepines Screen POS NEG Urine Cocaine Metabolite NEG NEG Urine Marijuana (THC) NEG NEG White Blood Count 11.36 4.8-10.8 K/uL Red Blood Count 4.61 4.2-5.4 M/uL Hemoglobin 12.5 12.0-16.0 g/dL Hematocrit 38.4 37-47 % Mean Corpuscular Volume 83.3 80-100 fL Mean Corpuscular Hemoglobin 27.1 25-34 pg Mean Corpuscular Hemoglobin Concent 32.6 32-36 g/dl Platelet Count 210 130-400 K/uL Mean Platelet Volume 10.0 7.4-10.4 fL Neutrophils (%) (Auto) 87.6 % Lymphocytes (%) (Auto) 8.6 % Monocytes (%) (Auto) 3.1 % Eosinophils (%) (Auto) 0.2 % Basophils (%) (Auto) 0.1 % Neutrophils # (Auto) 9.96 1.4-6.5 K/uL Lymphocytes # (Auto) 0.98 1.2-3.4 K/uL Monocytes # (Auto) 0.35 0.11-0.59 K/uL Eosinophils # (Auto) 0.02 0-0.5 K/uL Basophils # (Auto) 0.01 0-0.2 K/uL RDW Standard Deviation 36.7 36.4-46.3 fL RDW Coefficient of Variation 12.1 11.5-14.5 % Immature Granulocyte % (Auto) 0.4 % Immature Granulocyte # (Auto) 0.04 0.00-0.02 K/uL Prothrombin Time 10.9 9.0-12.0 SECONDS Prothromb Time International Ratio 1.0 0.9-1.1 Activated Partial Thromboplast Time 22.6 21.0-31.0 SECONDS Partial Thromboplastin Ratio 0.9 Sodium Level 143 136-145 mmol/L Potassium Level 3.8 3.5-5.1 mmol/L Chloride Level 108 98-107 mmol/L Carbon Dioxide Level 24 21-32 mmol/L Anion Gap 11.0 3-11 mmol/L Blood Urea Nitrogen 16 7-18 mg/dl Creatinine 0.84 0.60-1.20 mg/dl Est Creatinine Clear Calc Drug Dose 99.9 ml/min Estimated GFR () 116.0 Estimated GFR (Non- 100.1 BUN/Creatinine Ratio 18.7 10-20 Random Glucose 95 70-99 mg/dl Osmolality 313 280-300 mOsm/kg Calcium Level 9.0 8.5-10.1 mg/dl Magnesium Level 2.1 1.8-2.4 mg/dl Total Bilirubin 0.4 0.2-1 mg/dl Direct Bilirubin < 0.1 0-0.2 mg/dl Aspartate Amino Transf (AST/SGOT) 28 15-37 U/L Alanine Aminotransferase (ALT/SGPT) 20 12-78 U/L Alkaline Phosphatase 58 45-117 U/L Total Creatine Kinase 182 26-192 U/L Creatine Kinase MB 1.4 0.5-3.6 ng/ml Creatine Kinase MB Ratio 0.8 0-3.0 Troponin I < 0.015 0-0.045 ng/ml Total Protein 7.7 6.4-8.2 gm/dl Albumin 4.1 3.4-5.0 gm/dl Lipase 3281 73-393 U/L Salicylates Level < 1.7 2.8-20 mg/dl Acetaminophen Level < 2 10-30 ug/ml Ethyl Alcohol mg/dL 63.0 0-3 mg/dl Impression Assessment and Plan Pt is a 21 yo female with hx of severe depression who presents to ER after suicide attempt this AM Suicide attempt/polysubstance abuse - Will admit to inpt telemetry at this time. Hold all medications including trazodone and zoloft. Pt will be observed on 1:1 at this time. EKG in AM. Cont to monitor vitals. Likely can go to inpt psych in AM Elev lipase likely related to N/V but possibly element of pancreatitis as well with heavy drinking. Cont NPO at this time and start on IVF, recheck lipase in AM Pt is FULL CODE VTE Prophylaxis VTE Risk Assessment Done? Y/N: Yes Risk Level: Moderate
[2017-02-08] MEDS ORDERED: NURSING VERBAL MED ORDER ONE (15:15)
[2017-02-08] MEDS: SODIUM CHLORIDE 0.9% 1000ML 1,000 ML IV SCH ×2 (15:17→20:39)
[2017-02-08] MEDS ORDERED: MAGNESIUM OXIDE 400 MG TAB PO ONE (15:30)
[2017-02-08] MEDS: MAGNESIUM OXIDE 400 MG TAB PO SCH (20:39)
[2017-02-09] MEDS: SODIUM CHLORIDE 0.9% 1000ML 1,000 ML IV SCH ×3 (04:14→20:15)
[2017-02-09 07:53] VITALS: BP 92/48; PULSE 85; TEMP 37; O2SAT 97
[2017-02-09 08:09] LABS: BASO % 0.1 %; BASO ABS # 0.01 K/uL (0-0.2); COMPLETE YES; EOS % 0.6 %; HEMATOCRIT 33.7 % (37-47); IG% 0.3 %; LYMPH % 21.3 %; LYMPH ABS # 1.69 K/uL (1.2-3.4); MEAN CELL VOLUME 84.5 fL (80-100); MEAN CORPUSCULAR HEMOGLOBIN 27.8 pg (25-34); MEAN CORPUSCULAR HGB CONC 32.9 g/dl (32-36); MONO % 6.7 %; PLATELET COUNT 172 K/uL (130-400); RED BLOOD COUNT 3.99 M/uL (4.2-5.4); WHITE BLOOD COUNT 7.94 K/uL (4.8-10.8)
[2017-02-09] MEDS: MAGNESIUM OXIDE 400 MG TAB PO SCH ×2 (08:28→20:15)
[2017-02-09 08:30] VITALS: BP 101/48
[2017-02-09 08:52] LABS: BUN/CREATININE RATIO 23.4 (10-20); CALCIUM 8.1 mg/dl (8.5-10.1); CREATININE 0.7 mg/dl (0.60-1.20); POTASSIUM 3.9 mmol/L (3.5-5.1)
[2017-02-09 12:52] VITALS: BP 112/64; PULSE 100; TEMP 37.5; O2SAT 97
--- NOTE | 2017-02-09 13:02 | Psychiatric Consultation ---
Consultation Date of Consultation Feb 09, 2017. 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 Admit to medical floor with QTc prolongation and significantly elevated lipase following polysubstance ingestion. Chief Complaint "I had a stupid fight when I was drunk". History of Present Illness Patient has denied SI here in the hospital but admits that she was suicidal while intoxicated and intentionally took Zoloft and trazodone to harm herself following an argument with her boyfriend. She had had 6 shots and took 10-15 tabs (unknown amount of Zoloft and trazodone--her prescription medications). She didn't feel well and just went to bed. She states she woke up and really didn't feel much better so called [employer] to come to ED for assessment. She admits that she is stressed with family issues and the new semester. She states that 'this was all stupid" and seemed somewhat surprised when liaison had questioned her about willingness to return for inpatient care. Maikol reports reconciling with her boyfriend this am and having multiple exams this week. PHQ-9 16 with 1 on question 9 indicated she was having suicidal thoughts several days this week. Lipase has significantly improved, QTc was >500 and has also normalized. Past Psychiatric History Prior Psych Hospitalizations: [facility] (May 2016) Access to a Gun: No Additional Notes Dr. Mcguire at [facility] is prescribing her medications. Discharge recommendation was for therapy via [facility]. Past Medical/Surgical History History of Concussion/Seizure: No Allergies Allergies: Coded Allergies: No Known Allergies (Unverified , 02/08/17) Home Medications Scheduled Sertraline HCl (Sertraline HCl), 50 MG PO QAM Trazodone HCl (Trazodone HCl), 1 TAB PO HS Miscellaneous Medications Etonogestrel (Nexplanon) Family History No pertinent family history History of Suicide: No History of Substance Abuse: No Psychiatric History: Yes (mother with depression and anxiety) Alcohol Use Alcohol Use In Past 12 Months: Yes (binge drinker on weekends, unknown amount of wine during week) Smoking Use Smoking Status: Never Smoker Substance History denied thought tox positive for benzo--I cannot find any evidence of history in [place] PDMP database Personal History Childhood: grew up in [place], parents when she with 5 months old. Lived with mother until age 17. 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 Examination Vital Signs Vital Signs Past 12 Hours Date Time Temp Pulse Resp B/P (MAP) Pulse Ox O2 Delivery O2 Flow Rate FiO2 02/09/17 12:52 37.5 100 20 112/64 (80) 97 Room Air 02/09/17 08:30 101/48 (65) 02/09/17 08:00 Room Air 02/09/17 07:53 37.0 85 16 92/48 (63) 97 Room Air Laboratory Results Last 24 Hours Test 02/09/17 07:49 White Blood Count 7.94 K/uL Red Blood Count 3.99 M/uL Hemoglobin 11.1 g/dL Hematocrit 33.7 % Mean Corpuscular Volume 84.5 fL Mean Corpuscular Hemoglobin 27.8 pg Mean Corpuscular Hemoglobin Concent 32.9 g/dl Platelet Count 172 K/uL Mean Platelet Volume 10.0 fL Neutrophils (%) (Auto) 71.0 % Lymphocytes (%) (Auto) 21.3 % Monocytes (%) (Auto) 6.7 % Eosinophils (%) (Auto) 0.6 % Basophils (%) (Auto) 0.1 % Neutrophils # (Auto) 5.64 K/uL Lymphocytes # (Auto) 1.69 K/uL Monocytes # (Auto) 0.53 K/uL Eosinophils # (Auto) 0.05 K/uL Basophils # (Auto) 0.01 K/uL RDW Standard Deviation 36.9 fL RDW Coefficient of Variation 11.9 % Immature Granulocyte % (Auto) 0.3 % Immature Granulocyte # (Auto) 0.02 K/uL Sodium Level 139 mmol/L Potassium Level 3.9 mmol/L Chloride Level 108 mmol/L Carbon Dioxide Level 20 mmol/L Anion Gap 11.0 mmol/L Blood Urea Nitrogen 16 mg/dl Creatinine 0.70 mg/dl Est Creatinine Clear Calc Drug Dose 119.9 ml/min Estimated GFR () 144.6 Estimated GFR (Non- 124.7 BUN/Creatinine Ratio 23.4 Random Glucose 57 mg/dl Calcium Level 8.1 mg/dl Total Bilirubin 0.6 mg/dl Aspartate Amino Transf (AST/SGOT) 23 U/L Alanine Aminotransferase (ALT/SGPT) 17 U/L Alkaline Phosphatase 52 U/L Total Protein 5.9 gm/dl Albumin 3.0 gm/dl Globulin 2.9 gm/dl Albumin/Globulin Ratio 1.0 Lipase 167 U/L Mental Examination During interview pt is: alert and oriented Appearance: disheveled Eye contact is: good Motor behavior is: no abnormal motor movements Speech: normal in rate, rhythm & volume Affect: euthymic Mood is: other ("feeling better") Thought process: clear, coherent Thought content: reality based without delusions Suicidal thought are: denied Homicidal thoughts are: denied Hallucinations: denies auditory, denies visual Cognition: attention grossly intact Intelligence estimated to be: consistent with level of education Insight: limited Judgement: limited Impression / Recommendations Impression 21 yo female with a history of depression and psychiatric admission in May 2016 who presents following suicide attempt. She is exhibiting impulsivity, particularly when intoxicated but no evidence of yariel. She did not seek care immediately and remains at significant risk for self-harm despite denying SI currently. She is minimizing her drinking. Recommendations upon review of the potential medical ramifications of her attempt and my recommendations, she is agreeable to inpatient psychiatric care when medically cleared. reviewed that I did not anticipate a bed being available today on 3[facility] and likely to involve a bed search she has 1-on-1, probably not needed when a visitor or family present if the patient would ultimately refuse 201 admission, I would support involuntary commitment procedures. Please do not allow the patient to leave AMA without notification of psych service.
[2017-02-09 14:58] VITALS: BP 104/65; PULSE 81; TEMP 37; O2SAT 96
--- NOTE | 2017-02-09 15:14 | Progress Note ---
Subjective Date of Service: Feb 09, 2017. 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 She had an attempted suicide attempt on Friday evening after an argument with her boyfriend. In which she took 10-20 pills of sertaline and trazodone (each). The next day she threw up, and found about 5 pills that were undigested. She went to the ER and was admitted. EG initially showed prolonged QTC. Patient has history of depression. Patient also reports that she recently removed her tampon that she had left in from Friday evening, and she is concerned with toxic shock syndrome. Today, patient also states that she has been dizzy when she stands up. Problem List Medical Problems: (1) Anxiety Status: Acute (2) Deliberate self-cutting Status: Acute (3) Depression Status: Acute (4) Depression Status: Acute (5) Pancreatitis Status: Acute (6) Suicidal ideations Status: Acute (7) Suicide attempt Status: Acute Review of Systems Constitutional: + fever, No see HPI, No chills, No sweats, No weight loss, No weakness, No fatigue, No problem reported Eyes: No see HPI, No worsening of vision, No eye pain, No redness, No discharge , No diplopia, No problem reported ENT: No see HPI, No hearing loss, No unusual epistaxis, No nasal symptoms, No sore throat, No tinnitus, No dental problems, No trouble swallowing, No problem reported Respiratory: No see HPI, No cough, No sputum, No wheezing, No shortness of breath, No dyspnea on exertion, No dyspnea at rest, No hemoptysis, No problem reported Abdomen: No see HPI, No pain, No nausea, No vomiting, No diarrhea, No constipation, No GI bleeding, No problem reported Musculoskeletal: No see HPI, No joint pain, No muscle pain, No swelling, No calf pain, No problem reported Female : No see HPI, No dysuria, No urinary frequency, No hematuria, No incontinence, No abnormal vaginal bleeding, No vaginal discharge, No problem reported Psychiatric: + depression symptoms All Other Systems: Reviewed and Negative Medications Current Inpatient Medications Medications (Trade) Dose Ordered Sig/Curtis Route Start Time Stop Time Status Last Admin Dose Admin Acetaminophen (Tylenol Tab) 650 mg Q4H PRN PO 02/08/17 12:45 03/10/17 12:44 Ondansetron HCl (Zofran Inj) 4 mg Q6H PRN IV 02/08/17 12:45 03/10/17 12:44 Sodium Chloride 1,000 ml @ 125 mls/hr Q8H IV 02/08/17 12:45 03/10/17 12:44 02/09/17 20:15 125 MLS/HR Magnesium Oxide (Mag-Ox Tab) 400 mg BID PO 02/08/17 20:00 03/10/17 19:59 02/09/17 20:15 400 MG Objective Vital Signs Date Time Temp Pulse Resp B/P (MAP) Pulse Ox O2 Delivery O2 Flow Rate FiO2 02/09/17 14:58 37.0 81 16 104/65 (78) 96 Room Air 02/09/17 12:52 37.5 100 20 112/64 (80) 97 Room Air 02/09/17 08:30 101/48 (65) 02/09/17 08:00 Room Air 02/09/17 07:53 37.0 85 16 92/48 (63) 97 Room Air 02/08/17 23:49 Room Air 02/08/17 23:34 36.4 87 20 95/45 (62) 97 Room Air 02/08/17 22:31 36.9 85 20 103/54 (70) 97 Room Air 02/08/17 19:57 Room Air 02/08/17 17:06 36.1 76 20 111/50 (70) 95 Room Air 02/08/17 16:06 87/45 (59) 102/53 (69) 02/08/17 16:00 Room Air 02/08/17 15:08 93/46 (62) 02/08/17 15:07 93/46 (62) Physical Exam General Appearance: WD/WN, no apparent distress Neck: supple, no adenopathy Respiratory/Chest: chest non-tender, lungs clear, normal breath sounds Cardiovascular: regular rate, rhythm, no edema, no gallop, no JVD Abdomen: normal bowel sounds, non tender, soft Extremities: normal range of motion, normal inspection, no pedal edema Neurologic/Psychiatric: alert, normal mood/affect, oriented x 3 Lymphatic: no adenopathy Laboratory Results Last 24 Hours Test 02/09/17 07:49 White Blood Count 7.94 K/uL Red Blood Count 3.99 M/uL Hemoglobin 11.1 g/dL Hematocrit 33.7 % Mean Corpuscular Volume 84.5 fL Mean Corpuscular Hemoglobin 27.8 pg Mean Corpuscular Hemoglobin Concent 32.9 g/dl Platelet Count 172 K/uL Mean Platelet Volume 10.0 fL Neutrophils (%) (Auto) 71.0 % Lymphocytes (%) (Auto) 21.3 % Monocytes (%) (Auto) 6.7 % Eosinophils (%) (Auto) 0.6 % Basophils (%) (Auto) 0.1 % Neutrophils # (Auto) 5.64 K/uL Lymphocytes # (Auto) 1.69 K/uL Monocytes # (Auto) 0.53 K/uL Eosinophils # (Auto) 0.05 K/uL Basophils # (Auto) 0.01 K/uL RDW Standard Deviation 36.9 fL RDW Coefficient of Variation 11.9 % Immature Granulocyte % (Auto) 0.3 % Immature Granulocyte # (Auto) 0.02 K/uL Sodium Level 139 mmol/L Potassium Level 3.9 mmol/L Chloride Level 108 mmol/L Carbon Dioxide Level 20 mmol/L Anion Gap 11.0 mmol/L Blood Urea Nitrogen 16 mg/dl Creatinine 0.70 mg/dl Est Creatinine Clear Calc Drug Dose 119.9 ml/min Estimated GFR () 144.6 Estimated GFR (Non- 124.7 BUN/Creatinine Ratio 23.4 Random Glucose 57 mg/dl Calcium Level 8.1 mg/dl Total Bilirubin 0.6 mg/dl Aspartate Amino Transf (AST/SGOT) 23 U/L Alanine Aminotransferase (ALT/SGPT) 17 U/L Alkaline Phosphatase 52 U/L Total Protein 5.9 gm/dl Albumin 3.0 gm/dl Globulin 2.9 gm/dl Albumin/Globulin Ratio 1.0 Lipase 167 U/L Assessment and Plan 1. Suicide attempt in a 21 year old female with Major depression EKG shows improvement of her QTC. Patient has dizziness, will obtain orthostatic blood pressure. will recheck EKG in AM. If both normal, will discharge patient. Psych consulted and are recommending inpatient psych. Per their notes, they do not have beds on currently so they are doing a bed search. Pt is currently willing to go to inpatient psych. Per Dr. Sykes, if pt no longer is agreeable then she would support involuntary commitment procedures. Case Management to follow. Continued [facility] stay due to: other (f/u EKG) Discharge planning: other (INPATIENT PSYCH)
[2017-02-09 15:32] VITALS: BP_SYST 101; BP_SYST 113; BP_SYST 97; BP_DIAS 57; BP_DIAS 61; BP_DIAS 64; PULSE 84; PULSE 93; PULSE 96
[2017-02-09 23:03] VITALS: BP 117/72; PULSE 70; TEMP 36.5; O2SAT 98
[2017-02-10] MEDS: SODIUM CHLORIDE 0.9% 1000ML 1,000 ML IV SCH ×3 (04:16→20:33)
[2017-02-10 07:14] VITALS: BP 107/58; PULSE 79; TEMP 36.7; O2SAT 99
[2017-02-10 07:48] LABS: BASO % 0.2 %; BASO ABS # 0.01 K/uL (0-0.2); COMPLETE YES; EOS % 2.4 %; HEMATOCRIT 34.6 % (37-47); LYMPH % 32.7 %; LYMPH ABS # 1.89 K/uL (1.2-3.4); MEAN CELL VOLUME 83.2 fL (80-100); MEAN CORPUSCULAR HEMOGLOBIN 27.4 pg (25-34); MEAN CORPUSCULAR HGB CONC 32.9 g/dl (32-36); MEAN PLATELET VOLUME 10.2 fL (7.4-10.4); NEUT % 55.7 %; PLATELET COUNT 171 K/uL (130-400); RED BLOOD COUNT 4.16 M/uL (4.2-5.4); WHITE BLOOD COUNT 5.78 K/uL (4.8-10.8)
[2017-02-10 08:00] VITALS: O2SAT 99
[2017-02-10 08:21] LABS: ALT/SGPT 31 U/L (12-78); BLOOD UREA NITROGEN 10 mg/dl (7-18); BUN/CREATININE RATIO 15.6 (10-20); CALCIUM 8.7 mg/dl (8.5-10.1); CARBON DIOXIDE 27 mmol/L (21-32); CHLORIDE 109 mmol/L (98-107); CREATININE 0.61 mg/dl (0.60-1.20); GLUCOSE 101 mg/dl (70-99); SODIUM 142 mmol/L (136-145)
[2017-02-10 08:24] LABS: ALB/GLOB RATIO 1.1 (0.9-2); ALKALINE PHOSPHATASE 54 U/L (45-117); AST/SGOT 37 U/L (15-37)
[2017-02-10] MEDS: MAGNESIUM OXIDE 400 MG TAB PO SCH ×2 (08:33→20:33)
[2017-02-10 15:51] VITALS: BP 113/70; PULSE 51; TEMP 37.1; O2SAT 98
[2017-02-10 16:00] VITALS: O2SAT 99
--- NOTE | 2017-02-10 18:16 | Progress Note ---
Subjective Date of Service: Feb 10, 2017. Subjective Patient is feeling fine but still having some disequilibrium and difficulty at times with focusing but no overt double vision or vertigo. She states when she gets up to move around she feels unsteady. Problem List Medical Problems: (1) Anxiety Status: Acute (2) Deliberate self-cutting Status: Acute (3) Depression Status: Acute (4) Depression Status: Acute (5) Pancreatitis Status: Acute (6) Suicidal ideations Status: Acute (7) Suicide attempt Status: Acute Review of Systems Constitutional: No fever, No chills Respiratory: No cough, No sputum Objective Vital Signs Date Time Temp Pulse Resp B/P (MAP) Pulse Ox O2 Delivery O2 Flow Rate FiO2 02/10/17 16:00 99 Room Air 02/10/17 15:51 37.1 51 18 113/70 (84) 98 Room Air 02/10/17 08:00 99 Room Air 02/10/17 07:14 36.7 79 16 107/58 (74) 99 Room Air 02/10/17 00:00 Room Air 02/09/17 23:03 36.5 70 18 117/72 (87) 98 Room Air 02/09/17 20:00 Room Air Physical Exam General Appearance: WD/WN, no apparent distress Eyes: normal inspection, PERRL, EOMI, sclerae normal, funduscopic exam normal ENT: hearing grossly normal, pharynx normal Respiratory/Chest: chest non-tender, lungs clear, normal breath sounds Cardiovascular: regular rate, rhythm, no murmur Abdomen: normal bowel sounds, non tender, soft Neurologic/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: 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 tested, no motor/sensory deficits, alert, oriented x 3 Laboratory Results Last 24 Hours Test 02/10/17 06:56 White Blood Count 5.78 K/uL Red Blood Count 4.16 M/uL Hemoglobin 11.4 g/dL Hematocrit 34.6 % Mean Corpuscular Volume 83.2 fL Mean Corpuscular Hemoglobin 27.4 pg Mean Corpuscular Hemoglobin Concent 32.9 g/dl Platelet Count 171 K/uL Mean Platelet Volume 10.2 fL Neutrophils (%) (Auto) 55.7 % Lymphocytes (%) (Auto) 32.7 % Monocytes (%) (Auto) 9.0 % Eosinophils (%) (Auto) 2.4 % Basophils (%) (Auto) 0.2 % Neutrophils # (Auto) 3.22 K/uL Lymphocytes # (Auto) 1.89 K/uL Monocytes # (Auto) 0.52 K/uL Eosinophils # (Auto) 0.14 K/uL Basophils # (Auto) 0.01 K/uL RDW Standard Deviation 36.8 fL RDW Coefficient of Variation 12.1 % Immature Granulocyte % (Auto) 0.0 % Immature Granulocyte # (Auto) 0.00 K/uL Sodium Level 142 mmol/L Potassium Level 4.0 mmol/L Chloride Level 109 mmol/L Carbon Dioxide Level 27 mmol/L Anion Gap 6.0 mmol/L Blood Urea Nitrogen 10 mg/dl Creatinine 0.61 mg/dl Est Creatinine Clear Calc Drug Dose 137.6 ml/min Estimated GFR () > 150.0 Estimated GFR (Non- 130.5 BUN/Creatinine Ratio 15.6 Random Glucose 101 mg/dl Calcium Level 8.7 mg/dl Total Bilirubin 0.3 mg/dl Aspartate Amino Transf (AST/SGOT) 37 U/L Alanine Aminotransferase (ALT/SGPT) 31 U/L Alkaline Phosphatase 54 U/L Total Protein 6.2 gm/dl Albumin 3.2 gm/dl Globulin 3.0 gm/dl Albumin/Globulin Ratio 1.1 Assessment and Plan 21-year-old female with trazodone and Zoloft overdose in addition alcohol. Patient continues to likely have some residual effects of her trazodone with some disequilibrium. Her QT interval continues to remain acceptable. Once her physical symptoms resolved and she'll be transferred to inpatient psych facility voluntarily Continued [facility] stay due to: other (f/u EKG) Discharge planning: other (INPATIENT PSYCH)
[2017-02-10 22:41] VITALS: BP 113/60; PULSE 53; TEMP 36.7; O2SAT 98
[2017-02-11] MEDS: SODIUM CHLORIDE 0.9% 1000ML 1,000 ML IV SCH (04:28)
[2017-02-11 07:04] VITALS: BP 106/68; PULSE 69; TEMP 36.7; O2SAT 97
[2017-02-11 07:30] LABS: BASO % 0.2 %; BASO ABS # 0.01 K/uL (0-0.2); COMPLETE YES; EOS % 3.2 %; IG% 0.2 %; LYMPH % 24.2 %; MEAN CELL VOLUME 82.9 fL (80-100); MEAN CORPUSCULAR HGB CONC 33.7 g/dl (32-36); MEAN PLATELET VOLUME 10.2 fL (7.4-10.4); NEUT % 62.2 %; PLATELET COUNT 195 K/uL (130-400); RED BLOOD COUNT 4.22 M/uL (4.2-5.4); WHITE BLOOD COUNT 6.61 K/uL (4.8-10.8)
[2017-02-11] MEDS: MAGNESIUM OXIDE 400 MG TAB PO SCH (07:40)
[2017-02-11 08:00] VITALS: O2SAT 97
[2017-02-11 08:05] LABS: BUN/CREATININE RATIO 11.3 (10-20); CALCIUM 8.7 mg/dl (8.5-10.1); CREATININE 0.69 mg/dl (0.60-1.20); POTASSIUM 3.7 mmol/L (3.5-5.1)
--- NOTE | 2017-02-11 11:26 | Discharge Instructions ---
Discharge Instructions Date of Service Feb 11, 2017. Admission Reason for Admission: Pancreatitis,Suicide Attempt Discharge Discharge Diagnosis / Problem: intentional overdose Discharge Goals Goal(s): Diagnostic testing Activity Recommendations Activity Limitations: resume your previous activity . Current Hospital Diet Patient's current hospital diet: Regular Diet Discharge Diet Recommended Diet: Regular Diet Pending Studies Studies pending at discharge: no Medical Emergencies . Who to Call and When: Medical Emergencies: If at any time you feel your situation is an emergency, please call 911 immediately. . Non-Emergent Contact Non-Emergency issues call your: Primary Care Provider Call Non-Emergent contact if: temperature is above 101, your pain is not controlled . . "Provider Documentation" section prepared by Joyce Antunez. . VTE Core Measure Inpt VTE Proph given/why not?: Treatment not indicated
--- NOTE | 2017-02-11 11:32 | Discharge Summary ---
Discharge Summary Date of Service Feb 11, 2017. (Joyce Antunez CRNP) Discharge Summary Admission Date: Feb 08, 2017 at 12:35 Discharge Date: Feb 11, 2017 Discharge Disposition: Acute care mental health Principal Diagnosis: Suicide attempt Consultations: Dr. Sykes, psychiatry (Joyce Antunez CRNP) Medication Reconciliation Continued Medications: Etonogestrel (Nexplanon) 68 Mg Imp Discontinued Medications: Sertraline HCl (Sertraline HCl) 50 Mg Tab 50 MG PO QAM for 30 Days, #30 TAB Trazodone HCl (Trazodone HCl) 50 Mg Tab 1 TAB PO HS Discharge Exam Review of Systems: Constitutional: No weakness Neurologic: No memory loss, No paralysis, No weakness Psychiatric: No depression symptoms Physical Exam: General Appearance: WD/WN, no apparent distress Eyes: normal inspection Respiratory/Chest: chest non-tender, lungs clear, normal breath sounds Cardiovascular: regular rate, rhythm, no edema, no gallop, no murmur Abdomen / GI: normal bowel sounds, non tender, soft Neurologic/Psychiatric: alert, normal mood/affect, oriented x 3 Skin: normal color, warm/dry (Joyce Antunez CRNP) Hospital Course 21-year-old female with trazodone and Zoloft overdose in addition alcohol. Her QT interval continues to remain acceptable. Medically stable to transfer to psych Total Time Spent: Greater than 30 minutes This includes examination of the patient, discharge planning, medication reconciliation, and communication with other providers. (Joyce Antunez CRNP) PA Physician Supervision Note: I interviewed and examined the patient. Discussed with Michelle Antunez ORDER WORKER and agree with findings and plan as documented in the note. Any exceptions or clarifications are listed here: None Patient was seen with almost complete resolution of her symptoms only having some mild subjective lightheadedness when standing her vitals are stable she is voluntarily willing to go to behavioral health unit today. She is awake alert and oriented her cranial nerves are intact including cerebellar exam she'll be transferred to be of her health unit for further care of her suicide gesture and depression she is counseled by substance abuse with her alcohol use that occurred surrounding this event also Documented By: Silviano Bowens (Silviano Bowens M.D.) Discharge Instructions Please refer to the electronic Patient Visit Report (Discharge Instructions) for additional information. (Joyce Antunez ., PRAVEENA)
[2017-02-14 12:35] LABS: HYDROXYETHYLFLURAZEPAM CONF NEGATIVE NG/ML (CUTOFF=50); HYDROXYMIDAZOLAM NEGATIVE NG/ML (CUTOFF=50); HYDROXYTRIAZOLAM CONF NEGATIVE NG/ML (CUTOFF=50); TEMAZEPAM CONF NEGATIVE NG/ML (CUTOFF=50)
== END 2017-02-11 13:41 | DRG 918 ==
LOC: C.EDB 10:21 → C.MS4W 12:35 → EDBEDREQ 12:39 → ENRESERV 12:58
PROVIDERS: ADMIT Hospitalist; ATTEND Internal Medicine
DX: T43.222A Poisoning by selective serotonin reuptake inhibitors, intentional self-harm, initial encounter (principal); T43.212A Poisoning by selective serotonin and norepinephrine reuptake inhibitors, intentional self-harm, initial encounter; I45.81 Long QT syndrome; R11.2 Nausea with vomiting, unspecified; R42 Dizziness and giddiness; R74.8 Abnormal levels of other serum enzymes; F32.9 Major depressive disorder, single episode, unspecified; F19.10 Other psychoactive substance abuse, uncomplicated; Z91.5 Personal history of self-harm; Z81.8 Family history of other mental and behavioral disorders; Z79.899 Other long term (current) drug therapy

== ENCOUNTER 2017-02-11 13:41 | Inpatient (IN) | payer OTHER ==
[~2017-02-11] VITALS: Ht 166.4 cm; Wt 60.1 kg
[~2017-02-11 13:41] MED LIST changes: -CYAN100073 PO; +DSY50 PO
[2017-02-11 14:00] VITALS: BP 121/71; PULSE 75; TEMP 36.9; Ht 166.4 cm; Wt 60.1 kg
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
[2017-02-11] MEDS ORDERED: MAGNESIUM HYDROXIDE SUSP 30 ML UDC PO PRN (16:00)
[2017-02-11] MEDS ORDERED: BISMUTH SUBSALICYLATE PER ML OMNICELL CHARGE PO PRN (16:00)
[2017-02-11] MEDS ORDERED: SODIUM CHLORIDE 0.65% NA SOLN 45 ML (OCEAN) PRN (16:00)
[2017-02-11] MEDS ORDERED: ALUMINUM/MAGNESIUM SUSP 30 ML UDC PO PRN (16:00)
[2017-02-11] MEDS ORDERED: ACETAMINOPHEN 325 MG TAB PO PRN (16:00)
[2017-02-11] MEDS ORDERED: hydrOXYzine HCL 25 MG TAB PO PRN (16:00)
[2017-02-11] MEDS: hydrOXYzine HCL 25 MG TAB PO PRN (23:41)
[2017-02-12 06:42] VITALS: BP_SYST 117; BP_SYST 118; BP_DIAS 63; BP_DIAS 67; PULSE 108; PULSE 69; TEMP 36.7
--- NOTE | 2017-02-12 10:51 | Psychiatric Progress Notes ---
Progress Note Date of Service Feb 12, 2017. Interval History 21-year-old woman transferred from medical following an intentional toxic ingestion of Zoloft and trazodone in a suicide attempt. At this point she agrees that she has been continuously depressed although denies that she has been suicidal other than when under the influence of alcohol. We have suggested she abstain from alcohol for the foreseeable future. We discussed medications and she agrees to another trial of an antidepressant but we will postpone the start of this until the effects of the overdose have diminished. Today she continues to feel as if her vision is blurred complaining of a "whooshing" in her head and feeling tremulous. She does not want her father involved in her treatment and he does not know that she is here, however she will allow her boyfriend to be involved with meetings. She agrees now that she needs to follow up both with a psychiatrist and with a therapist to talk about her issues and we will establish this aftercare prior to discharge. At this time however she requires inpatient mental health treatment due to the severity of her condition and the risk for self-harm if discharged. Chief Complaint "I'm just tired. ". Subjective Patient was seen & assessed interval progress reviewed with Treatment Team. The patient is just getting out of bed, saying she hadn't slept for 3 days, but last night slept long. She has changed her mind about involving her father, and so called him yesterday to tell of her OD, and today has a phone meeting scheduled with him. She has also decided that she wants to withdraw from this semester, but stay in [place] to attend psychiatric treatment. She thinks that he will support her in this, given that she has now been hospitalized twice. She rates her mood today 4/10 and has anxiety about the upcoming meeting, but is denying active SI. She otherwise says that she is too tired to know how she feels at this time. She is still experiencing a sense of tremulousness and would like to postpone starting meds for another day. Review of Systems Constitutional: + fatigue ENT: No hearing loss, No unusual epistaxis, No nasal symptoms, No sore throat, No tinnitus, No dental problems, No trouble swallowing, No problem reported Respiratory: No cough, No sputum, No wheezing, No shortness of breath, No dyspnea on exertion, No dyspnea at rest, No hemoptysis, No problem reported Cardiovascular: No chest pain, No orthopnea, No PND, No edema, No claudication , No palpitations, No problem reported Abdomen: No pain, No nausea, No vomiting, No diarrhea, No constipation, No GI bleeding, No problem reported Musculoskeletal: No joint pain, No muscle pain, No swelling, No calf pain, No problem reported Neurologic: + problem reported (tremors) Psychiatric: + depression symptoms, + anxiety Integumentary: No rash, No itch, No new/changing skin lesions, No color change , No bleeding, No problem reported Sleep Information Total Hours of Sleep: 6.00 Meal Information Percent of Breakfast Consumed: 0 Percent of Dinner Consumed: 100 Mental Status Exam During interview pt is: alert and oriented, cooperative Appearance: appropriately dressed, disheveled Eye contact is: good Motor behavior is: steady gait & station Speech: normal in rate, rhythm & volume Affect: blunted, anxious Mood is: depressed, anxious Thought process: goal directed Thought content: reality based without delusions Suicidal thought are: present, Plan: present, Intent: present Homicidal thoughts are: denied Hallucinations: denies auditory, denies visual Cognition: memory grossly intact, attention grossly intact, language grossly intact Intelligence estimated to be: average Insight: impaired Judgement: impaired Impression The patient is adjusting to the unit. She is still feeling the effects of her OD and wants to wait another day before starting Lexapro. Meeting with father today, and will discuss her wish to withdraw from school. This may be a difficult discussion given that father wants her to come home to work on family dynamics. Plan (1) Major depressive disorder, recurrent severe without psychotic features 02/11 - Patient agreeable to a trial of Lexapro but we'll postpone starting this until the effects of the overdose have diminished - Every 15 minute checks for safety -Encourage participation in group and individual counseling - The patient will need psychiatric aftercare - Assist the patient to explore ideas of mindfulness, relaxation - Recommend all currently nonprescribed medications be Removed 02/12 - Patient requesting to hold on meds another day, but will start tomorrow - Family meeting by phone with father today (2) HILLARY (generalized anxiety disorder) 02/11 - Will use when necessary Vistaril for anxiety and sleep - Lexapro as above - Explore mindfulness, relaxation, breathing exercises Has been reviewed with Dr. Lilliam Octavio Discharge / Aftercare Planning Primary Care Physician: Name: [facility] Visit Code E&M Code: 54091 Inventory Assets Strengths: Support from boyfriend, motivated to get a degree Needs: To abstain from alcohol Risk Factors Assessment : Yes /single/: Yes Higher / Fall in social status: No Health problems: No Mental Health Diagnoses: Yes Substance use disorders: Yes Previous attempt: Yes Previous psychiatric stay: Yes Hopelessness: No Smoker: No Protective Factors Assessment Restorationist beliefs: No : No Responsible for young children: No Employed: Yes Stable relationships: No Supportive family: No Data Vital Signs Last 24 Hrs: Date Time Temp Pulse Resp B/P (MAP) Pulse Ox O2 Delivery O2 Flow Rate FiO2 02/12/17 06:42 36.7 69 16 117/63 108 118/67 02/11/17 14:00 36.9 75 16 121/71 Meds Administered Last 24 Hrs: Meds Administered (Past 24Hrs) Medications (Trade) Dose Ordered Sig/Curtis Route Start Time Stop Time Status Last Admin Dose Admin Hydroxyzine HCl (Vistaril Tab) 50 mg HSZ PRN PO 02/11/17 16:00 03/13/17 15:59 02/11/17 23:41 50 MG
[2017-02-12] MEDS: hydrOXYzine HCL 25 MG TAB PO PRN (23:06)
[2017-02-13 06:56] VITALS: BP_SYST 103; BP_SYST 105; BP_DIAS 58; BP_DIAS 64; PULSE 48; PULSE 86; TEMP 36.5
[2017-02-13] MEDS: ESCITALOPRAM OXALATE 10 MG TAB PO SCH (08:45)
--- NOTE | 2017-02-13 10:14 | Psychiatric Progress Notes ---
Progress Note Date of Service Feb 13, 2017. Interval History 21-year-old woman transferred from medical following an intentional toxic ingestion of Zoloft and trazodone in a suicide attempt. At this point she agrees that she has been continuously depressed although denies that she has been suicidal other than when under the influence of alcohol. We have suggested she abstain from alcohol for the foreseeable future. We discussed medications and she agrees to another trial of an antidepressant but we will postpone the start of this until the effects of the overdose have diminished. Today she continues to feel as if her vision is blurred complaining of a "whooshing" in her head and feeling tremulous. She does not want her father involved in her treatment and he does not know that she is here, however she will allow her boyfriend to be involved with meetings. She agrees now that she needs to follow up both with a psychiatrist and with a therapist to talk about her issues and we will establish this aftercare prior to discharge. At this time however she requires inpatient mental health treatment due to the severity of her condition and the risk for self-harm if discharged. Chief Complaint "Better than expected". Subjective Patient was seen & assessed and interval progress reviewed. Staff report she attended some groups yesterday, and stated her mood was improving and she was feeling more optimistic. She said she was realizing that she needed to be more serious about her mental health treatment and to go to her follow-up appointments. Her father and boyfriend visited, and she had a family meeting with her father and the social welfare clerk yesterday. Her father supports her taking a medical withdrawal from school, wanting her to return home, and they had an extended discussion about this. They discussed the conflict between the patient and her stepmother, in part because her stepmother did not pay for her own children's college education and doesn't support the patient's father paying for her tuition. Her father also expressed concern about her on healthy ways of dealing with conflicts, which he noted is similar to her biological mother's family. The patient has not had contact with her mother for 4 years and has no intention of changing that. Her father noted that she has agreed to get treatment in the past, but then has not followed through. He expressed concern that this may happen again. The patient voiced her desire to stay in school, and agreed to sign releases so that her outpatient providers could communicate with her father. At the end of the meeting, the plan was for her to medically withdrawal from school, but stay [place] and obtained local aftercare. She is scheduled to see Wesleymagdi Santana at [facility] on 03/05/2017. Today, she started the trial of escitalopram 5 mg. She has also been receiving hydroxyzine for sleep. She states that mood has improved, and that she was pleased with the outcome of her family meeting yesterday, as she thinks her father understood why she would not want to move back home, and is happy he is allowing her to stay in [place] [employer]. She denies suicidal thoughts, and is making plans for the future. She denies problems with appetite, but is requiring medication for sleep. The effects of her overdose have resolved, and she denies feeling shaky or dizzy. She is not sure how she will spend her time now that she is planning to withdraw from school. She talks about the need to have a structured schedule, but is not sure how she will achieve that. She is concerned about the difficulty she has had with focus, saying she can't concentrate in class or to study, and we reviewed the various things that can negatively impact concentration, including depression, anxiety, poor sleep, substance abuse, etc. She was encouraged to work on a plan for how she will structure her schedule when she leaves the hospital, and how she will incorporate good self-care and new, healthy coping skills into that. Sleep Information Total Hours of Sleep: 6.00 Meal Information Percent of Breakfast Consumed: 100 Percent of Lunch Consumed: 100 Percent of Dinner Consumed: 100 Mental Status Exam During interview pt is: alert and oriented, cooperative Appearance: appropriately dressed (wearing a cropped T-shirt), appropriately groomed (hair pulled up, wearing full makeup) Eye contact is: good Motor behavior is: steady gait & station, no abnormal motor movements Speech: normal in rate, rhythm & volume Affect: other (mildly depressed, but reactive and appropriate) Mood is: other ("doing better") Thought process: goal directed Thought content: reality based without delusions Suicidal thought are: denied Homicidal thoughts are: denied Hallucinations: denies auditory, denies visual Cognition: memory grossly intact, attention grossly intact, language grossly intact Intelligence estimated to be: average Insight: fair Judgement: fair Impression The patient is adjusting to the unit, participating in groups, and had a family meeting with her father. The effects of her OD have finally subsided, and she got her first dose of escitalopram 5 mg today. She has decided to medically withdraw from school, but stay in [place], and will need to be referred for aftercare here, as she will no longer have access to [facility]. She needs to work on a plan to structure her schedule outside of the hospital and implement healthier coping skills. Plan (1) Major depressive disorder, recurrent severe without psychotic features 02/11 - Patient agreeable to a trial of Lexapro but we'll postpone starting this until the effects of the overdose have diminished - Every 15 minute checks for safety - Encourage participation in group and individual counseling - The patient will need psychiatric aftercare - Assist the patient to explore ideas of mindfulness, relaxation - Recommend all currently nonprescribed medications be Removed 02/12 - Patient requesting to hold on meds another day, but will start tomorrow - Family meeting by phone with father today 02/13 - Started escitalopram 5 mg daily, can increase over the next couple of days if well tolerated. - Will need referral for local aftercare. - Planning to medically withdrawal from school. - Encourage patient to work on a structured schedule for after she leaves the hospital, with focus on adequate sleep, good nutrition and self-care. (2) HILLARY (generalized anxiety disorder) 02/11 - Will use when necessary Vistaril for anxiety and sleep - Lexapro as above - Explore mindfulness, relaxation, breathing exercises Discharge / Aftercare Planning Primary Care Physician: Name: [facility] Therapist: Name: Wesley Santana Date of Appointment: Mar 05, 2017 Time of Appointment: 8:00am Appointment Notes: Please bring your Insurance card to appointment Visit Code E&M Code: 11248 Inventory Assets Strengths: Support from boyfriend, motivated to get a degree Needs: To abstain from alcohol Risk Factors Assessment : Yes /single/: Yes Higher / Fall in social status: No Health problems: No Mental Health Diagnoses: Yes Substance use disorders: Yes Previous attempt: Yes Previous psychiatric stay: Yes Hopelessness: No Smoker: No Protective Factors Assessment Shinto beliefs: No : No Responsible for young children: No Employed: Yes Stable relationships: No Supportive family: No Data Vital Signs Last 24 Hrs: Date Time Temp Pulse Resp B/P (MAP) Pulse Ox O2 Delivery O2 Flow Rate FiO2 02/13/17 06:56 36.5 48 16 105/64 86 103/58 Meds Administered Last 24 Hrs: Meds Administered (Past 24Hrs) Medications (Trade) Dose Ordered Sig/Curtis Route Start Time Stop Time Status Last Admin Dose Admin Hydroxyzine HCl (Vistaril Tab) 50 mg HSZ PRN PO 02/11/17 16:00 03/13/17 15:59 02/12/17 23:06 50 MG Escitalopram Oxalate (Lexapro Tab) 5 mg QAM PO 02/13/17 09:00 03/15/17 08:59 02/13/17 08:45 5 MG
[2017-02-14 07:02] VITALS: BP_SYST 112; BP_SYST 97; BP_DIAS 62; BP_DIAS 67; PULSE 58; PULSE 89; TEMP 36.4
[2017-02-14] MEDS: ESCITALOPRAM OXALATE 10 MG TAB PO SCH (08:45)
--- NOTE | 2017-02-14 14:42 | Psychiatric Progress Notes ---
Progress Note Date of Service Feb 14, 2017. Interval History 21-year-old woman transferred from medical following an intentional toxic ingestion of Zoloft and trazodone in a suicide attempt. At this point she agrees that she has been continuously depressed although denies that she has been suicidal other than when under the influence of alcohol. We have suggested she abstain from alcohol for the foreseeable future. We discussed medications and she agrees to another trial of an antidepressant but we will postpone the start of this until the effects of the overdose have diminished. Today she continues to feel as if her vision is blurred complaining of a "whooshing" in her head and feeling tremulous. She does not want her father involved in her treatment and he does not know that she is here, however she will allow her boyfriend to be involved with meetings. She agrees now that she needs to follow up both with a psychiatrist and with a therapist to talk about her issues and we will establish this aftercare prior to discharge. At this time however she requires inpatient mental health treatment due to the severity of her condition and the risk for self-harm if discharged. Chief Complaint "Better.". Subjective Patient was seen & assessed interval progress reviewed with Treatment Team. Maikol reports feeling better, and without the residual symptoms of her OD. She has tolerated this initial dose of Lexapro without side effect. She is still planning on withdrawing from this semester with plans to return in May. She will stay in this area and work in therapy. She feels that if she were to return home, her father would make her decisions for her, which she doesn't see as healthy or productive for her. She has some anxiety about what happens after discharge and whether she will continue to improve, or relapse. We reviewed some of her safety plan, which includes talking to people, including her BF and her aunt. She denies SI/HI. Review of Systems Constitutional: No fever, No chills, No sweats, No weight loss, No weakness, No fatigue, No problem reported ENT: No hearing loss, No unusual epistaxis, No nasal symptoms, No sore throat, No tinnitus, No dental problems, No trouble swallowing, No problem reported Respiratory: No cough, No sputum, No wheezing, No shortness of breath, No dyspnea on exertion, No dyspnea at rest, No hemoptysis, No problem reported Cardiovascular: No chest pain, No orthopnea, No PND, No edema, No claudication , No palpitations, No problem reported Abdomen: No pain, No nausea, No vomiting, No diarrhea, No constipation, No GI bleeding, No problem reported Musculoskeletal: No joint pain, No muscle pain, No swelling, No calf pain, No problem reported Neurologic: No memory loss, No paralysis, No weakness, No numbness/tingling, No vertigo, No balance problems, No problem reported Psychiatric: + depression symptoms (improving), + anxiety Sleep Information Total Hours of Sleep: 6.75 Meal Information Percent of Breakfast Consumed: 100 Percent of Lunch Consumed: 95 Percent of Dinner Consumed: 100 Mental Status Exam During interview pt is: alert and oriented, cooperative Appearance: appropriately dressed (wearing a cropped T-shirt), appropriately groomed (hair pulled up, wearing full makeup) Eye contact is: good Motor behavior is: steady gait & station, no abnormal motor movements Speech: normal in rate, rhythm & volume Affect: anxious Mood is: anxious Thought process: goal directed Thought content: reality based without delusions Suicidal thought are: denied Homicidal thoughts are: denied Hallucinations: denies auditory, denies visual Cognition: memory grossly intact, attention grossly intact, language grossly intact Intelligence estimated to be: average Insight: fair Judgement: fair Impression Will stay in [place] for the remainder of the semester and work in therapy. Will increase Lexapro to 10 mg. daily. Continue to work on coping strategies. Plan (1) Major depressive disorder, recurrent severe without psychotic features 02/11 - Patient agreeable to a trial of Lexapro but we'll postpone starting this until the effects of the overdose have diminished - Every 15 minute checks for safety - Encourage participation in group and individual counseling - The patient will need psychiatric aftercare - Assist the patient to explore ideas of mindfulness, relaxation - Recommend all currently nonprescribed medications be Removed 02/12 - Patient requesting to hold on meds another day, but will start tomorrow - Family meeting by phone with father today 02/13 - Started escitalopram 5 mg daily, can increase over the next couple of days if well tolerated. - Will need referral for local aftercare. - Planning to medically withdrawal from school. - Encourage patient to work on a structured schedule for after she leaves the hospital, with focus on adequate sleep, good nutrition and self-care. (2) HILLARY (generalized anxiety disorder) 02/11 - Will use when necessary Vistaril for anxiety and sleep - Lexapro as above - Explore mindfulness, relaxation, breathing exercises Discharge / Aftercare Planning Primary Care Physician: Name: [facility] Psychiatrist: Name: Dr Betancur Date of Appointment: Feb 27, 2017 Time of Appointment: 12:30Pm Appointment Notes: [address] [address] [address] Therapist: Name: Wesley Santana Date of Appointment: Mar 05, 2017 Time of Appointment: 8:00am Appointment Notes: Please bring your Insurance card to appointment Visit Code E&M Code: 05721 Inventory Assets Strengths: Support from boyfriend, motivated to get a degree Needs: To abstain from alcohol Risk Factors Assessment : Yes /single/: Yes Higher / Fall in social status: No Health problems: No Mental Health Diagnoses: Yes Substance use disorders: Yes Previous attempt: Yes Previous psychiatric stay: Yes Hopelessness: No Smoker: No Protective Factors Assessment Episcopalian beliefs: No : No Responsible for young children: No Employed: Yes Stable relationships: No Supportive family: No Data Vital Signs Last 24 Hrs: Date Time Temp Pulse Resp B/P (MAP) Pulse Ox O2 Delivery O2 Flow Rate FiO2 02/14/17 07:02 36.4 58 16 97/62 89 112/67 Meds Administered Last 24 Hrs: Meds Administered (Past 24Hrs) Medications (Trade) Dose Ordered Sig/Curtis Route Start Time Stop Time Status Last Admin Dose Admin Escitalopram Oxalate (Lexapro Tab) 5 mg QAM PO 02/13/17 09:00 03/15/17 08:59 02/14/17 08:45 5 MG
[2017-02-15 07:05] VITALS: BP_SYST 100; BP_SYST 104; BP_DIAS 63; BP_DIAS 64; PULSE 61; PULSE 76; TEMP 36.6
[2017-02-15] MEDS: ESCITALOPRAM OXALATE 10 MG TAB PO SCH (09:02)
--- NOTE | 2017-02-15 17:19 | Psychiatric Progress Notes ---
Progress Note Date of Service Feb 15, 2017. Interval History 21-year-old woman transferred from medical following an intentional toxic ingestion of Zoloft and trazodone in a suicide attempt. At this point she agrees that she has been continuously depressed although denies that she has been suicidal other than when under the influence of alcohol. We have suggested she abstain from alcohol for the foreseeable future. We discussed medications and she agrees to another trial of an antidepressant but we will postpone the start of this until the effects of the overdose have diminished. Today she continues to feel as if her vision is blurred complaining of a "whooshing" in her head and feeling tremulous. She does not want her father involved in her treatment and he does not know that she is here, however she will allow her boyfriend to be involved with meetings. She agrees now that she needs to follow up both with a psychiatrist and with a therapist to talk about her issues and we will establish this aftercare prior to discharge. At this time however she requires inpatient mental health treatment due to the severity of her condition and the risk for self-harm if discharged. Chief Complaint "did not sleep well last night, perhaps because I was cold". Subjective Patient was seen & assessed interval progress reviewed with Nursing. she was awakened from a nap that she stated occurred because she had issues with falling asleep last night over being cold. She did not take vistaril last night over thinking it was more about just being cold. She reported some anxiety about expected discharge date on Friday but that this anxiety was lessened some then the previous day. She shared about how the family meeting with her father went better then she had expected. She is taking off this ester and is expecting to resume college for spring. Pt nervousness focuses on being able to get herself ready for that next semester and handle the stressors between now and then. 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 She denied SI. She denied HI. She denied AH or VH. No hypomanic symptoms. Depression is improving. She denied s/e to her medication. Lexapro was newly raised to 10mg from 5mg and she is interested in remaining on this medication .She is engaging well with peers and staff and attending and participating in groups. nl appetite Review of Systems Constitutional: No fever, No chills, No sweats, No weight loss, No weakness, No fatigue, No problem reported Respiratory: No cough, No sputum, No wheezing, No shortness of breath, No dyspnea on exertion, No dyspnea at rest, No hemoptysis, No problem reported Cardiovascular: No chest pain, No orthopnea, No PND, No edema, No claudication , No palpitations, No problem reported Abdomen: No pain, No nausea, No vomiting, No diarrhea, No constipation, No GI bleeding, No problem reported Musculoskeletal: No joint pain, No muscle pain, No swelling, No calf pain, No problem reported Neurologic: No memory loss, No paralysis, No weakness, No numbness/tingling, No vertigo, No balance problems, No problem reported Psychiatric: + problem reported (as above ) Sleep Information Total Hours of Sleep: 7.00 Meal Information Percent of Breakfast Consumed: 100 Percent of Lunch Consumed: 100 Percent of Dinner Consumed: 100 Mental Status Exam During interview pt is: alert and oriented, cooperative Appearance: appropriately dressed (wearing a cropped T-shirt), appropriately groomed (hair pulled up, wearing full makeup) Eye contact is: good Motor behavior is: steady gait & station, no abnormal motor movements Speech: normal in rate, rhythm & volume Affect: mood congruent, other (mildly anxious) Mood is: anxious (but less then yesterday ) Thought process: goal directed Thought content: reality based without delusions Suicidal thought are: denied Homicidal thoughts are: denied Hallucinations: denies auditory, denies visual Cognition: memory grossly intact, attention grossly intact, language grossly intact Intelligence estimated to be: average Insight: fair Judgement: fair Impression Will stay in [place] for the remainder of the semester and work in therapy. Will increase Lexapro to 10 mg. daily. Continue to work on coping strategies. Plan (1) Major depressive disorder, recurrent severe without psychotic features 02/11 - Patient agreeable to a trial of Lexapro but we'll postpone starting this until the effects of the overdose have diminished - Every 15 minute checks for safety - Encourage participation in group and individual counseling - The patient will need psychiatric aftercare - Assist the patient to explore ideas of mindfulness, relaxation - Recommend all currently nonprescribed medications be Removed 02/12 - Patient requesting to hold on meds another day, but will start tomorrow - Family meeting by phone with father today 9/21 - Started escitalopram 5 mg daily, can increase over the next couple of days if well tolerated. - Will need referral for local aftercare. - Planning to medically withdrawal from school. - Encourage patient to work on a structured schedule for after she leaves the hospital, with focus on adequate sleep, good nutrition and self-care. 02/15 lexapro 10mg daily, addressing transitions from admission to being in apartment with her withdrawing from classes, establishing aftercare (2) HILLARY (generalized anxiety disorder) 02/11 - Will use when necessary Vistaril for anxiety and sleep - Lexapro as above - Explore mindfulness, relaxation, breathing exercises Discharge / Aftercare Planning Primary Care Physician: Name: [facility] Psychiatrist: Name: Dr Betancur Date of Appointment: Feb 27, 2017 Time of Appointment: 12:30Pm Appointment Notes: [address] [facility] [address] Therapist: Name: Wesley Santana Date of Appointment: Mar 05, 2017 Time of Appointment: 8:00am Appointment Notes: Please bring your Insurance card to appointment Visit Code E&M Code: 91913 Inventory Assets Strengths: Support from boyfriend, motivated to get a degree Needs: To abstain from alcohol Risk Factors Assessment : Yes /single/: Yes Higher / Fall in social status: No Health problems: No Mental Health Diagnoses: Yes Substance use disorders: Yes Previous attempt: Yes Previous psychiatric stay: Yes Hopelessness: No Smoker: No Protective Factors Assessment Baptism beliefs: No : No Responsible for young children: No Employed: Yes Stable relationships: No Supportive family: No Data Vital Signs Last 24 Hrs: Date Time Temp Pulse Resp B/P (MAP) Pulse Ox O2 Delivery O2 Flow Rate FiO2 02/15/17 07:05 36.6 61 16 100/63 76 104/64 Meds Administered Last 24 Hrs: Meds Administered (Past 24Hrs) Medications (Trade) Dose Ordered Sig/Curtis Route Start Time Stop Time Status Last Admin Dose Admin Escitalopram Oxalate (Lexapro Tab) 10 mg QAM PO 02/15/17 09:00 03/17/17 08:59 02/15/17 09:02 10 MG
[2017-02-15] MEDS: hydrOXYzine HCL 25 MG TAB PO PRN (23:41)
[2017-02-16 07:03] VITALS: BP_SYST 89; BP_SYST 98; BP_DIAS 54; BP_DIAS 64; PULSE 56; PULSE 65; TEMP 36.7
[2017-02-16] MEDS: ESCITALOPRAM OXALATE 10 MG TAB PO SCH (08:54)
--- NOTE | 2017-02-16 15:25 | Psychiatric Progress Notes ---
Progress Note Date of Service Feb 16, 2017. Interval History 21-year-old woman transferred from medical following an intentional toxic ingestion of Zoloft and trazodone in a suicide attempt. At this point she agrees that she has been continuously depressed although denies that she has been suicidal other than when under the influence of alcohol. We have suggested she abstain from alcohol for the foreseeable future. We discussed medications and she agrees to another trial of an antidepressant but we will postpone the start of this until the effects of the overdose have diminished. Today she continues to feel as if her vision is blurred complaining of a "whooshing" in her head and feeling tremulous. She does not want her father involved in her treatment and he does not know that she is here, however she will allow her boyfriend to be involved with meetings. She agrees now that she needs to follow up both with a psychiatrist and with a therapist to talk about her issues and we will establish this aftercare prior to discharge. At this time however she requires inpatient mental health treatment due to the severity of her condition and the risk for self-harm if discharged. Chief Complaint "anxious about my future". Subjective Patient was seen & assessed interval progress reviewed with nursing pt anxious about upcoming expected discharge tomorrow, with pt clarifying that anxiety is mostly about what college will be like once aims to resume in May. pt main concern is will she be able to get into medical school given the degree she expects to have to raise her GPA to be likely to get into med school. She is wondering about changing her major (not sure what would change to) if not able to obtain med school since would not want other related career choices. Pt wants to be able to handle stress better lower her sense of pressure she places on herself and be more on top of things with less procrastination and more enjoyment with building up her structure and these things prior to resuming school in May. She is planning to continue her medication and see psychiatry and attend psychotherapy and utilize her coping skills to do this. She is appreciative that her father is flexible and encouraging her to be flexible as well. She denied si or hi. she feels much less depressed but weary about her being bale to obtain her academic and career goals. Pt aims to wake up at steady time go to coffee shop and read a non textbook each day to help with follow through and structure. She shared about her safety plan Review of Systems Constitutional: No fever, No chills, No sweats, No weight loss, No weakness, No fatigue, No problem reported Respiratory: No cough, No sputum, No wheezing, No shortness of breath, No dyspnea on exertion, No dyspnea at rest, No hemoptysis, No problem reported Cardiovascular: No chest pain, No orthopnea, No PND, No edema, No claudication , No palpitations, No problem reported Abdomen: No pain, No nausea, No vomiting, No diarrhea, No constipation, No GI bleeding, No problem reported Psychiatric: + anxiety Sleep Information Total Hours of Sleep: 6.00 Meal Information Percent of Breakfast Consumed: 100 Percent of Lunch Consumed: 100 Percent of Dinner Consumed: 75 Mental Status Exam During interview pt is: alert and oriented, cooperative Appearance: appropriately dressed (wearing a cropped T-shirt), appropriately groomed (hair pulled up, wearing full makeup) Eye contact is: good Motor behavior is: steady gait & station, no abnormal motor movements Speech: normal in rate, rhythm & volume Affect: mood congruent, other (mildly anxious) Mood is: anxious (but less then yesterday ) Thought process: goal directed Thought content: reality based without delusions Suicidal thought are: denied Homicidal thoughts are: denied Hallucinations: denies auditory, denies visual Cognition: memory grossly intact, attention grossly intact, language grossly intact Intelligence estimated to be: average Insight: fair Judgement: fair Impression Will stay in [place] for the remainder of the semester and work in therapy. Will increase Lexapro to 10 mg. daily. Continue to work on coping strategies. Plan (1) Major depressive disorder, recurrent severe without psychotic features 02/11 - Patient agreeable to a trial of Lexapro but we'll postpone starting this until the effects of the overdose have diminished - Every 15 minute checks for safety - Encourage participation in group and individual counseling - The patient will need psychiatric aftercare - Assist the patient to explore ideas of mindfulness, relaxation - Recommend all currently nonprescribed medications be Removed 02/12 - Patient requesting to hold on meds another day, but will start tomorrow - Family meeting by phone with father today 02/13 - Started escitalopram 5 mg daily, can increase over the next couple of days if well tolerated. - Will need referral for local aftercare. - Planning to medically withdrawal from school. - Encourage patient to work on a structured schedule for after she leaves the hospital, with focus on adequate sleep, good nutrition and self-care. 02/15 lexapro 10mg daily, addressing transitions from admission to being in apartment with her withdrawing from classes, establishing aftercare (2) HILLARY (generalized anxiety disorder) 02/11 - Will use when necessary Vistaril for anxiety and sleep - Lexapro as above - Explore mindfulness, relaxation, breathing exercises 02/15 as above addressed anxiety and ways to manage her anxiety in supportive/ CBT therapy today in assessment Discharge / Aftercare Planning Primary Care Physician: Name: [facility] Psychiatrist: Name: Dr Betancur Date of Appointment: Feb 27, 2017 Time of Appointment: 12:30Pm Appointment Notes: [address] [facility] [address] Therapist: Name: Wesley Santana Date of Appointment: Mar 05, 2017 Time of Appointment: 8:00am Appointment Notes: Please bring your Insurance card to appointment Visit Code E&M Code: 74451 Therapy Code: 59482 16+ minutes supprotive/CBT on aggrevating and alleivating aspects Inventory Assets Strengths: Support from boyfriend, motivated to get a degree Needs: To abstain from alcohol Risk Factors Assessment : Yes /single/: Yes Higher / Fall in social status: No Health problems: No Mental Health Diagnoses: Yes Substance use disorders: Yes Previous attempt: Yes Previous psychiatric stay: Yes Hopelessness: No Smoker: No Protective Factors Assessment Druze beliefs: No : No Responsible for young children: No Employed: Yes Stable relationships: No Supportive family: No Data Vital Signs Last 24 Hrs: Date Time Temp Pulse Resp B/P (MAP) Pulse Ox O2 Delivery O2 Flow Rate FiO2 02/16/17 07:03 36.7 56 16 89/54 65 98/64 Meds Administered Last 24 Hrs: Meds Administered (Past 24Hrs) Medications (Trade) Dose Ordered Sig/Curtis Route Start Time Stop Time Status Last Admin Dose Admin Escitalopram Oxalate (Lexapro Tab) 10 mg QAM PO 02/15/17 09:00 03/17/17 08:59 02/16/17 08:54 10 MG
[2017-02-16] MEDS: hydrOXYzine HCL 25 MG TAB PO PRN (21:29)
[2017-02-17 06:51] VITALS: BP_SYST 102; BP_SYST 99; BP_DIAS 53; BP_DIAS 54; PULSE 57; PULSE 84; TEMP 36.8
[2017-02-17] MEDS: ESCITALOPRAM OXALATE 10 MG TAB PO SCH (08:39)
[2017-02-17] MEDS ORDERED: LXP10 PO (09:56)
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
== END 2017-02-17 10:35 | disposition home or self-care (01) | DRG 885 ==
LOC: C.MHU 13:41
PROVIDERS: ADMIT Psychiatry & Neurology Psychiatry; ATTEND Psychiatry & Neurology Psychiatry
DX: F33.2 Major depressive disorder, recurrent severe without psychotic features (principal); R45.851 Suicidal ideations; F41.1 Generalized anxiety disorder

== ENCOUNTER → 2017-08-29 | Outpatient (CLI) | payer OTHER ==
[~2017-08-29] MED LIST changes: -DSY50 PO; +LXP10 PO; -ZLF50 PO
== END | disposition home or self-care (01) ==
LOC: C.LABSPEC 16:33
PROVIDERS: ATTEND Physician Assistant
DX: Z30.430 Encounter for insertion of intrauterine contraceptive device (principal)

== ENCOUNTER → 2017-10-13 | Outpatient (CLI) | payer OTHER | END | disposition home or self-care (01) | LOC: C.PAPS 13:19 | PROVIDERS: ATTEND Obstetrics & Gynecology | DX: Z12.4 Encounter for screening for malignant neoplasm of cervix (principal); Z11.51 Encounter for screening for human papillomavirus (HPV) ==